=== PATIENT | female | born 1975 | race Caucasian/White ===

== ENCOUNTER → 2016-04-13 | Outpatient (CLI) | payer BC ==
--- NOTE | 2016-04-13 12:45 | US ---
EXAMINATION TYPE: US thyroid st tissue head/neck DATE OF EXAM: 04/13/2016 10:32 AM COMPARISON: NONE CLINICAL HISTORY: E06.9 Thyroid enlargement. GLAND SIZE: Right Lobe: 4.8 x 1.6 x 1.9cm Overall Parenchyma: homogenous Left Lobe: 4.2 x 1.5 x 1.8cm Overall Parenchyma: homogeneous Isthmus Thickness: 0.5cm NODULES RIGHT: # of nodules measured on right: 0 LEFT: # of nodules measured on left: 0 ISTHMUS: # of nodules measured in the isthmus: 0 TECHNOLOGIST IMPRESSION: Bilateral neck scanned, no abnormal lymphadenopathy noted. IMPRESSION: Thyroid size is described.
== END | disposition home or self-care (01) ==
LOC: RADUSWWP 10:14
PROVIDERS: ATTEND Family Medicine
DX: E06.9 Thyroiditis, unspecified (principal)
CPT/HCPCS: 76536

== ENCOUNTER → 2018-03-21 | Outpatient (CLI) | payer BC ==
--- NOTE | 2018-03-21 21:32 | MR ---
MR brain without contrast HISTORY: Atypical migraine headache Multiplanar multisequence imaging through the brain No comparisons There is no restricted diffusion. Corpus callosum, cervical medullary junction, cerebellopontine angl es are normal. There is a partially empty sella. There are normal vascular flow voids present. No hem orrhage or hydrocephalus. Focal punctate hyperintensity in the left frontal lobe on T2 and inversion recovery sequences as noted on axial image 19. The orbits are symmetric. Sinuses are showing mild muc operiosteal thickening in the ethmoid air cells. IMPRESSION: Nonspecific white matter demyelination of questionable clinical significance could be rel ated to migraine headache. Mild sinus disease.
== END | disposition home or self-care (01) ==
LOC: RADMRIMAIN 19:41
PROVIDERS: ATTEND Psychiatry & Neurology Neurology
DX: G37.8 Other specified demyelinating diseases of central nervous system (principal); J32.9 Chronic sinusitis, unspecified
CPT/HCPCS: 70551

== ENCOUNTER 2020-10-03 12:54 | Emergency (ER) | payer BC ==
[2020-10-03] MEDS ORDERED: ONDANSETRON 4 MG/2 ML VIAL IVP STA (14:33)
[2020-10-03] MEDS ORDERED: KETOROLAC 15 MG/ML 1 ML VIAL IVP STA (14:33)
[2020-10-03] MEDS ORDERED: SODIUM CHLORIDE 0.9% 1,000 ML IV STA (14:33)
--- NOTE | 2020-10-03 14:58 | ED ---
Abdominal Pain HPI - General Chief Complaint: Abdominal Pain Stated Complaint: possible kidney stone or UTI Time Seen by Provider: 10/03/20 14:32 Source: patient, RN notes reviewed Mode of arrival: ambulatory Limitations: no limitations - History of Present Illness Initial Comments: 45-year-old white female patient, alert and oriented 4, presents to the emergency room with complaints of left flank pain for the past 2 days. She states that the pain is 8 out of 10 and is now causing her nausea. She does have a history of kidney stones. She also states she is having dysuria. She denies fevers but does state that she feels hot at times and then chills. MD Complaint: flank pain (Left) -: days(s) (2) Radiation: L flank Severity scale (1-10): 8 Consistency: constant Improves With: nothing Worsens With: nothing Associated Symptoms: nausea - Related Data Home Medications Medication Instructions Recorded Confirmed Escitalopram [Lexapro] 20 mg PO DAILY@199910/03/20 10/03/20 Previous Rx's Medication Instructions Recorded Cephalexin [Keflex] 500 mg PO Q6HR 10 Days #40 cap 10/03/20 Tamsulosin [Flomax] 0.4 mg PO DAILY #7 cap 10/03/20 Allergies Allergy/AdvReac Type Severity Reaction Status Date / Time Iodinated Contrast Media Allergy Rash/Hives Verified 10/03/20 14:52 Review of Systems ROS Statement: Those systems with pertinent positive or pertinent negative responses have been documented in the HPI. ROS Other: All systems not noted in ROS Statement are negative. Past Medical History Additional Past Medical History / Comment(s): kidney stones, UTI History of Any Multi-Drug Resistant Organisms: None Reported Past Surgical History: No Surgical Hx Reported Past Psychological History: Anxiety Smoking Status: Never smoker Past Alcohol Use History: Rare Past Drug Use History: None Reported General Exam Limitations: no limitations General appearance: alert, in distress Head exam: Present: atraumatic (Related to pain), normocephalic, normal inspection Eye exam: Present: normal appearance, PERRL, EOMI. Absent: scleral icterus, conjunctival injection, periorbital swelling ENT exam: Present: normal exam, mucous membranes moist Neck exam: Present: normal inspection, full ROM. Absent: tenderness, meni ngismus, lymphadenopathy, thyromegaly Respiratory exam: Present: normal lung sounds bilaterally. Absent: respiratory distress, wheezes, rales, rhonchi, stridor Cardiovascular Exam: Present: regular rate, normal rhythm, normal heart sounds. Absent: systolic murmur, diastolic murmur, rubs, gallop, clicks GI/Abdominal exam: Present: soft, tenderness (Left lower quadrant), normal bowel sounds. Absent: distended, guarding, rebound, rigid Extremities exam: Present: normal inspection, full ROM, normal capillary refill. Absent: tenderness, pedal edema, joint swelling, calf tenderness Back exam: Present: full ROM, CVA tenderness (L) Neurological exam: Present: alert, oriented X3, CN II-XII intact Psychiatric exam: Present: normal affect, normal mood Skin exam: Present: warm, dry, intact, normal color. Absent: rash, cyanosis, diaphoretic, petechiae, pallor Course Vital Signs 10/03/20 10/03/20 10/03/20 13:43 17:02 17:58 Temperature 98.9 F 98.2 F Pulse Rate 84 100 92 Respiratory 20 18 16 Rate Blood Pressure 97/60 109/74 132/80 O2 Sat by Pulse 100 96 98 Oximetry Medical Decision Making - Medical Decision Making A 7 x 4 mm calculus at the left UPJ with mild to moderate obstructive uropathy. Perinephric edema has developed active to this obstruction. There is an additional 5 mm nonobstructive left renal calculus. WBC count is 8.9, her urine shows large leukocyte esterase, 123 wbc's with few bacteria and small blood. Patient does not want to be admitted to the hospital. She is agreeable to following up with urology. She'll be given prescription for antibiotics for urinary tract infection, Flomax and Tylenol threes as needed for pain. Patient did state that she does not want anything that would affect her ability to carry her weapon at work. Patient was directed to take the medication as needed at bedtime. She was given strict return parameters to for increasing pain, fever or inability to urinate. Case was discussed with Dr. Calderon was agreeable to this plan of care. - Lab Data Result diagrams: 10/03/20 15:04 10/03/20 15:04 Lab Results 10/03/20 10/03/20 10/03/20 Range/Units 15:04 15:04 15:04 WBC 8.9 (3.8-10.6) k/uL RBC 4.62 (3.80-5.40) m/uL Hgb 13.8 (11.4-16.0) gm/dL Hct 41.8 (34.0-46.0) % MCV 90.6 (80.0-100.0) fL MCH 29.9 (25.0-35.0) pg MCHC 33.0 (31.0-37.0) g/dL RDW 13.5 (11.5-15.5) % Plt Count 119 L (150-450) k/uL MPV 9.8 Neutrophils % 90 % Lymphocytes % 7 % Monocytes % 2 % Eosinophils % 1 % Basophils % 0 % Neutrophils # 8.0 H (1.3-7.7) k/uL Lymphocytes # 0.6 L (1.0-4.8) k/uL Monocytes # 0.2 (0-1.0) k/uL Eosinophils # 0.1 (0-0.7) k/uL Basophils # 0.0 (0-0.2) k/uL Sodium 136 L (137-145) mmol/L Potassium 4.5 (3.5-5.1) mmol/L Chloride 108 H (98-107) mmol/L Carbon Dioxide 21 L (22-30) mmol/L Anion Gap 7 mmol/L BUN 17 (7-17) mg/dL Creatinine 1.01 (0.52-1.04) mg/dL Est GFR (CKD-EPI)AfAm 79 (>60 ml/min/1.73 sqM) Est GFR (CKD-EPI)NonAf 69 (>60 ml/min/1.73 sqM) Glucose 98 (74-99) mg/dL Calcium 8.9 (8.4-10.2) mg/dL Total Bilirubin 1.3 (0.2-1.3) mg/dL AST 34 (14-36) U/L ALT 22 (4-34) U/L Alkaline Phosphatase 52 (38-126) U/L Total Protein 6.8 (6.3-8.2) g/dL Albumin 4.0 (3.5-5.0) g/dL Amylase 66 (30-110) U/L Lipase 146 (23-300) U/L Urine Color Yellow Urine Appearance Cloudy H (Clear) Urine pH 6.0 (5.0-8.0) Ur Specific [place] 1.024 (1.001-1.035) Urine Protein 1+ H (Negative) Urine Glucose (UA) Negative (Negative) Urine Ketones Negative (Negative) Urine Blood Small H (Negative) Urine Nitrite Positive H (Negative) Urine Bilirubin Negative (Negative) Urine Urobilinogen <2.0 (<2.0) mg/dL Ur Leukocyte Esterase Large H (Negative) Urine RBC 15 H (0-5) /hpf Urine WBC 123 H (0-5) /hpf Urine WBC Clumps Few H (None) /hpf Ur Squamous Epith Cells 1 (0-4) /hpf Urine Bacteria Few H (None) /hpf Hyaline Casts 1 (0-2) /lpf Urine Mucus Few H (None) /hpf Urine HCG, Qual (Not Detectd) 10/03/20 Range/Units 15:04 WBC (3.8-10.6) k/uL RBC (3.80-5.40) m/uL Hgb (11.4-16.0) gm/dL Hct (34.0-46.0) % MCV (80.0-100.0) fL MCH (25.0-35.0) pg MCHC (31.0-37.0) g/dL RDW (11.5-15.5) % Plt Count (150-450) k/uL MPV Neutrophils % % Lymphocytes % % Monocytes % % Eosinophils % % Basophils % % Neutrophils # (1.3-7.7) k/uL Lymphocytes # (1.0-4.8) k/uL Monocytes # (0-1.0) k/uL Eosinophils # (0-0.7) k/uL Basophils # (0-0.2) k/uL Sodium (137-145) mmol/L Potassium (3.5-5.1) mmol/L Chloride (98-107) mmol/L Carbon Dioxide (22-30) mmol/L Anion Gap mmol/L BUN (7-17) mg/dL Creatinine (0.52-1.04) mg/dL Est GFR (CKD-EPI)AfAm (>60 ml/min/1.73 sqM) Est GFR (CKD-EPI)NonAf (>60 ml/min/1.73 sqM) Glucose (74-99) mg/dL Calcium (8.4-10.2) mg/dL Total Bilirubin (0.2-1.3) mg/dL AST (14-36) U/L ALT (4-34) U/L Alkaline Phosphatase (38-126) U/L Total Protein (6.3-8.2) g/dL Albumin (3.5-5.0) g/dL Amylase (30-110) U/L Lipase (23-300) U/L Urine Color Urine Appearance (Clear) Urine pH (5.0-8.0) Ur Specific [place] (1.001-1.035) Urine Protein (Negative) Urine Glucose (UA) (Negative) Urine Ketones (Negative) Urine Blood (Negative) Urine Nitrite (Negative) Urine Bilirubin (Negative) Urine Urobilinogen (<2.0) mg/dL Ur Leukocyte Esterase (Negative) Urine RBC (0-5) /hpf Urine WBC (0-5) /hpf Urine WBC Clumps (None) /hpf Ur Squamous Epith Cells (0-4) /hpf Urine Bacteria (None) /hpf Hyaline Casts (0-2) /lpf Urine Mucus (None) /hpf Urine HCG, Qual Not Detected (Not Detectd) Disposition Clinical Impression: Kidney stones, Urinary tract infection Disposition: HOME SELF-CARE Condition: Fair Instructions (If sedation given, give patient instructions): Kidney Stones (ED), Urinary Tract Infection in Women (ED), Flank Pain (ED) Additional Instructions: Take medication as prescribed and follow-up with urology next week. Return to the emergency room with any new or worsening pain, inability to urinate or fevers. Prescriptions: Tamsulosin [Flomax] 0.4 mg PO DAILY #7 cap Cephalexin [Keflex] 500 mg PO Q6HR 10 Days #40 cap Is patient prescribed a controlled substance at d/c from ED?: No Referrals: Drew Lugo DO [Primary Care Provider] - 1-2 days Rico Leong MD [STAFF PHYSICIAN] - 1-2 days Time of Disposition: 17:22
[2020-10-03 15:28] LABS: Appearance,Urine Cloudy (Clear); Bacteria,Urine Few /hpf; Bilirubin,Urine Negative (Negative); Blood,Urine Small (Negative); Color,Urine Yellow; Glucose,Urine (UA) Negative (Negative); Hyaline Casts,Urine 1 /lpf (0-2); Ketones,Urine Negative (Negative); Leukocyte Esterase,Urine Large (Negative); Mucus,Urine Few /hpf; Nitrite,Urine Positive (Negative); Protein,Urine 1+ (Negative); RBC,Urine 15 /hpf (0-5); Specific Gravity,Urine 1.024 (1.001-1.035); Squamous Epithelial Cell,Urine 1 /hpf (0-4); Urobilinogen,Urine <2.0 mg/dL (<2.0); WBC,Urine 123 /hpf (0-5)
[2020-10-03 15:41] LABS: Calcium 8.9 mg/dL (8.4-10.2); Total Bilirubin 1.3 mg/dL (0.2-1.3); Total Protein 6.8 g/dL (6.3-8.2)
[2020-10-03 15:47] LABS: Potassium 4.5 mmol/L (3.5-5.1)
[2020-10-03 16:02] LABS: Basophils % (A) 0 %; Eosinophils # (A) 0.1 k/uL (0-0.7); Eosinophils % (A) 1 %; HCT 41.8 % (34.0-46.0); HGB 13.8 gm/dL (11.4-16.0); Lymphocytes # (A) 0.6 k/uL (1.0-4.8); Lymphocytes % (A) 7 %; MCH 29.9 pg (25.0-35.0); MCV 90.6 fL (80.0-100.0); Mean Platelet Volume 9.8; Monocytes # (A) 0.2 k/uL (0-1.0); Monocytes % (A) 2 %; Neutrophils % (A) 90 %; Platelet Count 119 k/uL (150-450); RBC 4.62 m/uL (3.80-5.40); RDW 13.5 % (11.5-15.5); WBC 8.9 k/uL (3.8-10.6)
--- NOTE | 2020-10-03 16:15 | CT ---
EXAMINATION TYPE: CT abdomen pelvis wo con DATE OF EXAM: 10/03/2020 COMPARISON: None HISTORY: 45-year-old female abdominal pain, Left flank pain. History of stones. CT DLP: 892.2 mGycm. Automated exposure control for dose reduction was used. TECHNIQUE: Contiguous axial scanning of the abdomen and pelvis without IV contrast. Coronal and sagit sylvain reconstructions performed. FINDINGS: Heart normal size without pericardial effusion. Lung bases clear without pleural effusion. Liver enlarged measuring 21.6 cm. Noncontrast appearance of the gallbladder, adrenal glands, right kidney, spleen with small hilar and anterior splenules, and pancreas within normal limits. There is [id number] left-sided hydronephrosis with a 7 x 4 mm calculus at the left UPJ. 5 mm no nobstructive calculus lower pole left kidney. Mild perinephric edema and fat stranding. No dilated small bowel, free fluid, or free air. No mesenteric or retroperitoneal lymphadenopathy. Normal appendix. Mild stool burden. No pericolonic inflammatory change. Mild circumferential bladder wall thickening. Patulous bilateral inguinal canals. Uterus is anteverte d. Small pelvic lymph nodes. No abnormal fluid collection in the pelvis or pelvic lymphadenopathy. Le ft ovary not well seen. Right ovary demonstrates a 2.6 cm dominant follicle or functional cyst. Bones: No osseous destructive process. IMPRESSION: 1. A 7 x 4 mm calculus at the left UPJ with [id number] obstructive uropathy. Perinephric edema has developed and is probably reactive to the obstruction. 2. An additional 5 mm nonobstructive left renal calculus. 3. Hepatomegaly at 21.6 cm. 4. Mild circumferential bladder wall thickening. Correlate to exclude cystitis. 5. Incidental 2.6 cm dominant follicle or functional cyst in the right ovary.
[2020-10-03] MEDS ORDERED: HYDROmorphone 1 MG/ML 1 ML SYRINGE IVP STA ×2 (16:40→16:52)
[2020-10-03] MEDS ORDERED: cefTRIAXone IN SWFI 1,000 MG/10 ML SYRINGE IVP STA (16:40)
[2020-10-03] MEDS ORDERED: TAMSULOSIN 0.4 MG CAP.ER.24H PO STA (16:41)
[2020-10-03] MEDS ORDERED: ACET/COD 300 MG/30 MG STARTER PACK 6 TAB BTL PO STA (17:21)
[2020-10-03 17:58] VITALS: BP 132/80; PULSE 92; RESP 16; TEMP 98.2
== END 2020-10-03 17:58 | disposition home or self-care (01) ==
LOC: EC 12:54
DX: N20.0 Calculus of kidney (principal); N39.0 Urinary tract infection, site not specified; F41.9 Anxiety disorder, unspecified; Z91.041 Radiographic dye allergy status; Z87.442 Personal history of urinary calculi
CPT/HCPCS: 99284; 96374; 96375 ×3; 96361; 36415; 80053; 82150; 83690; 85025; 81001; 81025; 87086; 74176; J2405; J0696; J1170; J1885; 87077; 87186

== ENCOUNTER 2020-10-04 10:09 | Inpatient (IN) | payer BC ==
[2020-10-04] MEDS ORDERED: KETOROLAC 15 MG/ML 1 ML VIAL IVP STA (10:35)
[2020-10-04] MEDS ORDERED: HYDROmorphone 0.5 MG/0.5 ML SYRINGE IVP STA (10:35)
[2020-10-04] MEDS ORDERED: SODIUM CHLORIDE 0.9% 1,000 ML IV STA (10:35)
--- NOTE | 2020-10-04 10:44 | ED ---
General Adult HPI - General Chief complaint: Abdominal Pain Stated complaint: kidney stones-revisit Source: patient, family, RN notes reviewed Mode of arrival: ambulatory Limitations: no limitations - History of Present Illness Initial comments: 45-year-old white female, alert and oriented 4, presents to the emergency room as a repeat visit from yesterday for continued left flank pain. Patient states that the pain is 9 out of 10 and sharp and stabbing radiates to her left lower abdomen. She states that she has been taking the antibiotics and Flomax. She states her left flank feels swollen. She has nausea but no vomiting. She denies any fevers. She states when she was in the hospital yesterday the Toradol did help and was only thing that has helped. Yesterday CT showed she had a 7 x 4 mm calculus to the left kidney with perinephric edema and fat stranding. Patient at that time chose to be discharged home and will follow-up with urology. Location: left (HEENT) Radiation: abdomen Severity scale (1-10): 9 Quality: sharp Consistency: constant Improves with: none Worsens with: movement Associated Symptoms: fever/chills, nausea/vomiting Treatments Prior to Arrival: other (Antibiotics, Flomax) - Related Data Home Medications Medication Instructions Recorded Confirmed Escitalopram [Lexapro] 20 mg PO HS@2000 10/03/20 10/04/20 Cephalexin [Keflex] 500 mg PO Q6H 10/04/20 10/04/20 Ibuprofen [Motrin Ib] 400 - 600 mg PO Q6H PRN 10/04/20 10/04/20 Previous Rx's Medication Instructions Recorded Tamsulosin [Flomax] 0.4 mg PO DAILY #7 cap 10/03/20 Allergies Allergy/AdvReac Type Severity Reaction Status Date / Time Iodinated Contrast Media Allergy Rash/Hives Verified 10/04/20 13:05 Review of Systems ROS Statement: Those systems with pertinent positive or pertinent negative responses have been documented in the HPI. ROS Other: All systems not noted in ROS Statement are negative. Past Medical History Additional Past Medical History / Comment(s): kidney stones, UTI History of Any Multi-Drug Resistant Organisms: None Reported Past Surgical History: No Surgical Hx Reported Past Psychological History: Anxiety, Depression Smoking Status: Never smoker Past Alcohol Use History: Rare Past Drug Use History: None Reported General Exam Limitations: no limitations General appearance: alert, in distress (Related to pain) Head exam: Present: atraumatic, normocephalic, normal inspection Eye exam: Present: normal appearance, PERRL, EOMI. Absent: scleral icterus ENT exam: Present: normal exam, normal oropharynx, mucous membranes moist Neck exam: Present: normal inspection, full ROM. Absent: tenderness, meningismus, lymphadenopathy, thyromegaly Respiratory exam: Present: normal lung sounds bilaterally. Absent: respiratory distress, wheezes, rales, rhonchi, stridor, chest wall tenderness, accessory muscle use Cardiovascular Exam: Present: regular rate, normal rhythm, normal heart sounds. Absent: systolic murmur, diastolic murmur, rubs, gallop, clicks, JVD GI/Abdominal exam: Present: soft, tenderness (Left lower quadrant). Absent: hernia Extremities exam: Present: normal inspection, full ROM, normal capillary refill. Absent: tenderness, pedal edema, joint swelling, calf tenderness Back exam: Present: normal inspection, full ROM, CVA tenderness (L). Absent: muscle spasm, paraspinal tenderness, vertebral tenderness, rash noted Neurological exam: Present: alert, oriented X3, CN II-XII intact Psychiatric exam: Present: normal affect, normal mood Skin exam: Present: warm, dry, intact, normal color. Absent: rash, cyanosis, diaphoretic, petechiae, pallor Course Vital Signs 10/04/20 10:28 Temperature 98.2 F Pulse Rate 94 Respiratory 18 Rate Blood Pressure 106/74 O2 Sat by Pulse 98 Oximetry Medical Decision Making - Medical Decision Making Renal ultrasound shows a mild left-sided hydronephrosis suggestive of calculus in the lower pole left kidney measuring 5 mm. Right kidney with no evidence of hydronephrosis. WBC count is elevated from 8 yesterday to 16 today. Patient lactic acid is 1.4, BUN and creatinine are 16 and 1.0 respectively. Patient is being treated for urinary tract infection with Keflex, started yesterday. She was given a gram of Rocephin IV yesterday. Spoke with Dr. Leong who will admit patient. - Lab Data Result diagrams: 10/04/20 10:49 10/04/20 10:49 Lab Results 10/04/20 10/04/20 10/04/20 Range/Units 10:49 10:49 10:49 WBC 16.6 H (3.8-10.6) k/uL RBC 4.32 (3.80-5.40) m/uL Hgb 12.8 (11.4-16.0) gm/dL Hct 38.9 (34.0-46.0) % MCV 90.1 (80.0-100.0) fL MCH 29.7 (25.0-35.0) pg MCHC 32.9 (31.0-37.0) g/dL RDW 13.5 (11.5-15.5) % Plt Count 203 (150-450) k/uL MPV 8.5 Neutrophils % 83 % Lymphocytes % 9 % Monocytes % 6 % Eosinophils % 1 % Basophils % 0 % Neutrophils # 13.7 H (1.3-7.7) k/uL Lymphocytes # 1.6 (1.0-4.8) k/uL Monocytes # 1.0 (0-1.0) k/uL Eosinophils # 0.1 (0-0.7) k/uL Basophils # 0.1 (0-0.2) k/uL Sodium 137 (137-145) mmol/L Potassium 4.0 (3.5-5.1) mmol/L Chloride 107 (98-107) mmol/L Carbon Dioxide 23 (22-30) mmol/L Anion Gap 7 mmol/L BUN 16 (7-17) mg/dL Creatinine 1.00 (0.52-1.04) mg/dL Est GFR (CKD-EPI)AfAm 80 (>60 ml/min/1.73 sqM) Est GFR (CKD-EPI)NonAf 70 (>60 ml/min/1.73 sqM) Glucose 123 H (74-99) mg/dL Plasma Lactic Acid [place] (0.7-2.0) mmol/L Calcium 8.8 (8.4-10.2) mg/dL Total Bilirubin 0.7 (0.2-1.3) mg/dL AST 42 H (14-36) U/L ALT 32 (4-34) U/L Alkaline Phosphatase 47 (38-126) U/L Total Protein 6.4 (6.3-8.2) g/dL Albumin 3.8 (3.5-5.0) g/dL Urine Color Yellow Urine Appearance Cloudy H (Clear) Urine pH 5.5 (5.0-8.0) Ur Specific [place] 1.026 (1.001-1.035) Urine Protein 1+ H (Negative) Urine Glucose (UA) 1+ H (Negative) Urine Ketones Negative (Negative) Urine Blood Small H (Negative) Urine Nitrite Negative (Negative) Urine Bilirubin Negative (Negative) Urine Urobilinogen 6.0 (<2.0) mg/dL Ur Leukocyte Esterase Large H (Negative) Urine RBC 7 H (0-5) /hpf Urine WBC 73 H (0-5) /hpf Ur Squamous Epith Cells 1 (0-4) /hpf Urine Bacteria Rare H (None) /hpf Urine Mucus Occasional H (None) /hpf 10/04/20 Range/Units 10:49 WBC (3.8-10.6) k/uL RBC (3.80-5.40) m/uL Hgb (11.4-16.0) gm/dL Hct (34.0-46.0) % MCV (80.0-100.0) fL MCH (25.0-35.0) pg MCHC (31.0-37.0) g/dL RDW (11.5-15.5) % Plt Count (150-450) k/uL MPV Neutrophils % % Lymphocytes % % Monocytes % % Eosinophils % % Basophils % % Neutrophils # (1.3-7.7) k/uL Lymphocytes # (1.0-4.8) k/uL Monocytes # (0-1.0) k/uL Eosinophils # (0-0.7) k/uL Basophils # (0-0.2) k/uL Sodium (137-145) mmol/L Potassium (3.5-5.1) mmol/L Chloride (98-107) mmol/L Carbon Dioxide (22-30) mmol/L Anion Gap mmol/L BUN (7-17) mg/dL Creatinine (0.52-1.04) mg/dL Est GFR (CKD-EPI)AfAm (>60 ml/min/1.73 sqM) Est GFR (CKD-EPI)NonAf (>60 ml/min/1.73 sqM) Glucose (74-99) mg/dL Plasma Lactic Acid [place] 1.4 (0.7-2.0) mmol/L Calcium (8.4-10.2) mg/dL Total Bilirubin (0.2-1.3) mg/dL AST (14-36) U/L ALT (4-34) U/L Alkaline Phosphatase (38-126) U/L Total Protein (6.3-8.2) g/dL Albumin (3.5-5.0) g/dL Urine Color Urine Appearance (Clear) Urine pH (5.0-8.0) Ur Specific [place] (1.001-1.035) Urine Protein (Negative) Urine Glucose (UA) (Negative) Urine Ketones (Negative) Urine Blood (Negative) Urine Nitrite (Negative) Urine Bilirubin (Negative) Urine Urobilinogen (<2.0) mg/dL Ur Leukocyte Esterase (Negative) Urine RBC (0-5) /hpf Urine WBC (0-5) /hpf Ur Squamous Epith Cells (0-4) /hpf Urine Bacteria (None) /hpf Urine Mucus (None) /hpf Disposition Clinical Impression: Kidney stone Disposition: ADMITTED IP TO THIS [facility] Condition: Good Decision Date: 10/04/20 Decision Time: 13:49
[2020-10-04] MEDS ORDERED: ONDANSETRON 4 MG/2 ML VIAL IVP STA (10:46)
[2020-10-04 11:22] LABS: Basophils # (A) 0.1 k/uL (0-0.2); Basophils % (A) 0 %; Eosinophils # (A) 0.1 k/uL (0-0.7); Eosinophils % (A) 1 %; HCT 38.9 % (34.0-46.0); HGB 12.8 gm/dL (11.4-16.0); Lymphocytes # (A) 1.6 k/uL (1.0-4.8); Lymphocytes % (A) 9 %; MCH 29.7 pg (25.0-35.0); MCHC 32.9 g/dL (31.0-37.0); MCV 90.1 fL (80.0-100.0); Mean Platelet Volume 8.5; Monocytes % (A) 6 %; Neutrophils # (A) 13.7 k/uL (1.3-7.7); Neutrophils % (A) 83 %; Platelet Count 203 k/uL (150-450); RBC 4.32 m/uL (3.80-5.40); RDW 13.5 % (11.5-15.5); WBC 16.6 k/uL (3.8-10.6)
[2020-10-04 11:42] LABS: Albumin 3.8 g/dL (3.5-5.0); Calcium 8.8 mg/dL (8.4-10.2); Total Bilirubin 0.7 mg/dL (0.2-1.3); Total Protein 6.4 g/dL (6.3-8.2)
[2020-10-04 12:01] LABS: Appearance,Urine Cloudy (Clear); Bacteria,Urine Rare /hpf; Bilirubin,Urine Negative (Negative); Blood,Urine Small (Negative); Color,Urine Yellow; Glucose,Urine (UA) 1+ (Negative); Ketones,Urine Negative (Negative); Leukocyte Esterase,Urine Large (Negative); Mucus,Urine Occasional /hpf; Nitrite,Urine Negative (Negative); PH, Urine 5.5 (5.0-8.0); Protein,Urine 1+ (Negative); RBC,Urine 7 /hpf (0-5); Specific Gravity,Urine 1.026 (1.001-1.035); Squamous Epithelial Cell,Urine 1 /hpf (0-4); WBC,Urine 73 /hpf (0-5)
--- NOTE | 2020-10-04 12:13 | US ---
EXAMINATION TYPE: US renals and bladder DATE OF EXAM: 10/04/2020 COMPARISON: NONE CLINICAL HISTORY: uti, back pain, hx of kidney stones. left flank pain, history of kidney stones EXAM MEASUREMENTS: Right Kidney: 11.0 x 4.3 x 4.6 cm Left Kidney: 11.6 x 6.2 x 4.5 cm Right Kidney: no evidence of hydronephrosis Left Kidney: mild hydronephrosis, possible stone lower pole = 0.5cm Bladder: not fully distended Bilateral Jets seen: no No masses are identified. The urinary bladder is anechoic. IMPRESSION: Mild left-sided hydronephrosis suggested with calculus lower pole left kidney measuring 5 mm.
[2020-10-04] MEDS ORDERED: LEVOFLOXACIN 750MG-D5W PMX 750 MG in DEXTROSE/WATER 1 150ML.BAG IVPB STA (12:38)
[2020-10-04] MEDS ORDERED: HYDROmorphone 1 MG/ML 1 ML SYRINGE IVP PRN (12:41)
[2020-10-04] MEDS ORDERED: NALOXONE 0.4 MG/ML 1 ML VIAL IV PRN (12:41)
[2020-10-04] MEDS: KETOROLAC 15 MG/ML 1 ML VIAL IVP PRN (20:00)
[2020-10-04] MEDS: ESCITALOPRAM 20 MG TAB PO SCH (20:01)
[2020-10-05] MEDS: SODIUM CHLORIDE 0.9% 1,000 ML IV SCH ×3 (01:48→11:22)
[2020-10-05] MEDS: KETOROLAC 15 MG/ML 1 ML VIAL IVP PRN ×2 (03:56→19:33)
[2020-10-05 05:26] LABS: Basophils % (A) 0 %; Eosinophils # (A) 0.2 k/uL (0-0.7); Eosinophils % (A) 2 %; HCT 35.8 % (34.0-46.0); HGB 11.8 gm/dL (11.4-16.0); Lymphocytes # (A) 1.4 k/uL (1.0-4.8); Lymphocytes % (A) 15 %; MCH 30.2 pg (25.0-35.0); MCV 91.6 fL (80.0-100.0); Mean Platelet Volume 8.4; Monocytes # (A) 0.5 k/uL (0-1.0); Monocytes % (A) 6 %; Neutrophils # (A) 7.1 k/uL (1.3-7.7); Neutrophils % (A) 75 %; Platelet Count 160 k/uL (150-450); RBC 3.91 m/uL (3.80-5.40); RDW 13.5 % (11.5-15.5); WBC 9.4 k/uL (3.8-10.6)
[2020-10-05] MEDS: TAMSULOSIN 0.4 MG CAP.ER.24H PO SCH (08:29)
--- NOTE | 2020-10-05 10:23 | P.GSHP ---
History of Present Illness H&P Date: 10/05/20 Chief Complaint: Left ureteral stone This is a 45-year-old female who presented to the hospital with a 7 mm left- sided proximal stone. Of note she's had 2 ED presentation with kidney stones. Has previous history of kidney stones which she passed spontaneously. Denies any gross hematuria or dysuria. Her UA on presentation was concerning for UTI. On her initial presentation on October 03 she was placed on by mouth antibiotic, but presented back yesterday with worsening pain, and her white count was elevated to 16,000. She was admitted to the hospital given the stone in the UTI. Today she indicated her pain has improved, but she did have a temperature 100.0 last night. - Constitutional Constitutional: Reports chills, Denies fever - Cardiovascular Cardiovascular: Denies chest pain, Denies shortness of breath - Respiratory Respiratory: Denies cough, Denies 7 - Gastrointestinal Gastrointestinal: Denies abdominal pain, Denies diarrhea, Denies nausea, Denies vomiting - Genitourinary (Female) Genitourinary: Reports flank pain, Denies dysuria, Denies hematuria - Musculoskeletal Musculoskeletal: Denies myalgias - Integumentary Integumentary: Denies pruritus, Denies rash - Neurological Neurological: Denies numbness, Denies weakness 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 History of Any Multi-Drug Resistant Organisms: None Reported Past Surgical History: No Surgical Hx Reported Past Anesthesia/Blood Transfusion Reactions: No Reported Reaction Past Psychological History: Anxiety, Depression Smoking Status: Never smoker Past Alcohol Use History: Rare Past Drug Use History: None Reported - Past Family History Father Additional Family Medical History / Comment(s): heart issues Mother Family Medical History: Diabetes Mellitus Additional Family Medical History / Comment(s): Type 2 Medications and Allergies Home Medications Medication Instructions Recorded Confirmed Type Escitalopram [Lexapro] 20 mg PO HS@199910/03/20 10/04/20 History Tamsulosin [Flomax] 0.4 mg PO DAILY #7 cap 10/03/20 10/04/20 Rx Cephalexin [Keflex] 500 mg PO Q6H 10/04/20 10/04/20 History Ibuprofen [Motrin Ib] 400 - 600 mg PO Q6H PRN 10/04/20 10/04/20 History Allergies Allergy/AdvReac Type Severity Reaction Status Date / Time Iodinated Contrast Media Allergy Severe Rash/Hives Verified 10/04/20 15:36 Surgical - Exam Vital Signs Temp Pulse Resp BP Pulse Ox 98.2 F 94 18 106/74 98 10/04/20 10:28 10/04/20 10:28 10/04/20 10:28 10/04/20 10:28 10/04/20 10:28 - General well developed, well nourished, no distress, no pain - Eyes PERRL, normal ocular movement - ENT normal nares, normal mucosa - Respiratory normal expansion, normal respiratory effort - Abdomen Abdomen: soft, non tender - Psychiatric oriented to time, oriented to person, oriented to place Results - Labs 10/05/20 05:02 10/04/20 10:49 Abnormal Lab Results - Last 24 Hours (Table) 10/04/20 10/04/20 10/04/20 Range/Units 10:49 10:49 10:49 WBC 16.6 H (3.8-10.6) k/uL Neutrophils # 13.7 H (1.3-7.7) k/uL Glucose 123 H (74-99) mg/dL AST 42 H (14-36) U/L Urine Appearance Cloudy H (Clear) Urine Protein 1+ H (Negative) Urine Glucose (UA) 1+ H (Negative) Urine Blood Small H (Negative) Ur Leukocyte Esterase Large H (Negative) Urine RBC 7 H (0-5) /hpf Urine WBC 73 H (0-5) /hpf Urine Bacteria Rare H (None) /hpf Urine Mucus Occasional H (None) /hpf Diabetes panel 10/04/20 Range/Units 10:49 Sodium 137 (137-145) mmol/L Potassium 4.0 (3.5-5.1) mmol/L Chloride 107 (98-107) mmol/L Carbon Dioxide 23 (22-30) mmol/L BUN 16 (7-17) mg/dL Creatinine 1.00 (0.52-1.04) mg/dL Glucose 123 H (74-99) mg/dL Calcium 8.8 (8.4-10.2) mg/dL AST 42 H (14-36) U/L ALT 32 (4-34) U/L Alkaline Phosphatase 47 (38-126) U/L Total Protein 6.4 (6.3-8.2) g/dL Albumin 3.8 (3.5-5.0) g/dL Calcium panel 10/04/20 Range/Units 10:49 Calcium 8.8 (8.4-10.2) mg/dL Albumin 3.8 (3.5-5.0) g/dL Pituitary panel 10/04/20 Range/Units 10:49 Sodium 137 (137-145) mmol/L Potassium 4.0 (3.5-5.1) mmol/L Chloride 107 (98-107) mmol/L Carbon Dioxide 23 (22-30) mmol/L BUN 16 (7-17) mg/dL Creatinine 1.00 (0.52-1.04) mg/dL Glucose 123 H (74-99) mg/dL Calcium 8.8 (8.4-10.2) mg/dL Adrenal panel 10/04/20 Range/Units 10:49 Sodium 137 (137-145) mmol/L Potassium 4.0 (3.5-5.1) mmol/L Chloride 107 (98-107) mmol/L Carbon Dioxide 23 (22-30) mmol/L BUN 16 (7-17) mg/dL Creatinine 1.00 (0.52-1.04) mg/dL Glucose 123 H (74-99) mg/dL Calcium 8.8 (8.4-10.2) mg/dL Total Bilirubin 0.7 (0.2-1.3) mg/dL AST 42 H (14-36) U/L ALT 32 (4-34) U/L Alkaline Phosphatase 47 (38-126) U/L Total Protein 6.4 (6.3-8.2) g/dL Albumin 3.8 (3.5-5.0) g/dL - Imaging CT scan - abdomen: image reviewed (7 left sided proximal stones, 5 mm left lower pole stone) Assessment and Plan Assessment: 45-year-old female with history of 7 mm stone, had a UTI on presentation, had low grade temperature of 100. Discussed with her given that this is her second presentation with the kidney stone and her UTI recommend proceeding with stent placement. Discussed with her given her UTI we cannot perform ureteroscopy at this time. Discussed with her the stent is a temporary measure, and she will need a ureteroscopy in the future to address her stone. -OR for left sided stent placement, will discharge home after surgery,
[2020-10-05] MEDS: MORPHINE SULFATE 4 MG/ML SYRINGE IVP PRN ×2 (11:22→18:12)
[2020-10-05] MEDS: ONDANSETRON 4 MG/2 ML VIAL IVP PRN ×2 (11:45→22:31)
[2020-10-05] MEDS ORDERED: MIDAZOLAM 2 MG/2 ML VIAL ONE (16:25)
[2020-10-05] MEDS ORDERED: fentaNYL (PF) 50 MCG/ML 2 ML AMP ONE (16:25)
[2020-10-05] MEDS ORDERED: PROPOFOL 10 MG/ML 20 ML VIAL IV ONE (16:25)
[2020-10-05] MEDS ORDERED: LIDOCAINE 1% INJ 10MG/ML (20 ML MDV) ONE (16:25)
[2020-10-05] MEDS ORDERED: LACTATED RINGERS 1,000 ML IV ONE (16:30)
--- NOTE | 2020-10-05 16:52 | P.OP ---
Date of Procedure: 10/05/20 Preoperative Diagnosis: left ureteral stone Postoperative Diagnosis: same Procedure(s) Performed: cystoscopy, left RP, stent placement Implants: 4.8Fr X 24 cm Anesthesia: ZIAA Surgeon: Rico Leong Estimated Blood Loss (ml): 1 Pathology: none sent Condition: stable Disposition: PACU Indications for Procedure: 45-year-old female with history of 7 mm stone on the left , she had a UTI on presentation, had low grade temperature of 100. Discussed with her given that this is her second presentation with the kidney stone and her UTI recommend proceeding with stent placement. Discussed with her given her UTI we cannot perform ureteroscopy at this time. Discussed with her the stent is a temporary measure, and she will need a ureteroscopy in the future to address her stone. She understood all risks and agreed to proceed Description of Procedure: Patient was brought to the operating room, sedation was induce. She was prepped and draped in sterile fashion placed in a dorsal lithotomy position. Cystoscopy fitted with a 21-Persian sheath was inserted per urethra, cystoscopy was performed which showed no abnormality within the bladder. Attention was then carried to the left ureteral orifice was intubated with an open-ended catheter. Retrograde pyelogram was performed through the catheter which showed a filling defect along the course of the proximal ureter at level of stone and mild hydronephrosis. Next a sensor wire was advanced through the catheter and the catheter was removed with the wire in place. Next ureteral stent was passed over the wire, the proximal curl was visualized on fluoroscopy and the distal curl was visualized using the cystoscope . The bladder was emptied at the end of the case. Patient tolerated the procedure well was taken PACU in stable condition
[2020-10-05] MEDS ORDERED: SODIUM CHLORIDE 0.9% 1,000 ML IV ONE (17:30)
[2020-10-05 18:04] VITALS: RESP 16
--- NOTE | 2020-10-05 19:32 | FL ---
EXAMINATION TYPE: FL urography retrograde DATE OF EXAM: 10/05/2020 COMPARISON: NONE HISTORY: Kidney stones TECHNIQUE: Fluoroscopy. FINDINGS: Fluoroscopic guidance was provided during procedure performed by Dr. Gómez. A total of 1 9 seconds of fluoroscopic time was utilized during the procedure and zero spot images was acquired. IMPRESSION: As Above.
[2020-10-05] MEDS: ESCITALOPRAM 20 MG TAB PO SCH (19:42)
[2020-10-05] MEDS ORDERED: LEVOFLOXACIN 750MG-D5W PMX 750 MG in DEXTROSE/WATER 1 150ML.BAG IVPB SCH (20:00)
[2020-10-06] MEDS: MORPHINE SULFATE 4 MG/ML SYRINGE IVP PRN (00:42)
[2020-10-06] MEDS: SODIUM CHLORIDE 0.9% 1,000 ML IV SCH (03:54)
[2020-10-06] MEDS: KETOROLAC 15 MG/ML 1 ML VIAL IVP PRN ×2 (03:57→09:38)
--- NOTE | 2020-10-06 08:29 | P.DS ---
Providers Date of admission: 10/04/20 13:04 Attending physician: Rico Leong MD Primary care physician: [facility] Course: The patient is 45. She has a history kidney stones. She presented with a severe ureteral colic on the left side due to 7 mm stone. The urine was infected, she had an elevated temperature of 100 and elevated white count of 16,000. admitted the patient and place a stent. She is much better this morning. She is afebrile. Her white count is down to 9000. She'll be discharged home later today on a regular diet. Her activities Limited. Her medications are Levaquin and Fifield. She'll follow-up in the office with in one week. Her condition is good. She understands she'll need cystoscopy stone and stent removal at a later date. She understands the symptoms of the stent. She's been instructed to contact us with any problems. Patient Condition at Discharge: Good Plan - Discharge Summary Discharge Rx Participant: No New Discharge Prescriptions: New Levofloxacin [Levaquin] 500 mg PO DAILY 5 Days #5 tab Levofloxacin [Levaquin] 500 mg PO DAILY 1 Days #10 tab HYDROcodone/APAP 5-325MG [Fifield 5-325] 1 tab PO Q4HR PRN #10 tab PRN Reason: Pain Control No Action Escitalopram [Lexapro] 20 mg PO HS@1999 Tamsulosin [Flomax] 0.4 mg PO DAILY #7 cap Cephalexin [Keflex] 500 mg PO Q6H Ibuprofen [Motrin Ib] 400 - 600 mg PO Q6H PRN PRN Reason: Pain Discharge Medication List Escitalopram [Lexapro] 20 mg PO HS@199910/03/20 [History] Tamsulosin [Flomax] 0.4 mg PO DAILY #7 cap 10/03/20 [Rx] Cephalexin [Keflex] 500 mg PO Q6H 10/04/20 [History] Ibuprofen [Motrin Ib] 400 - 600 mg PO Q6H PRN 10/04/20 [History] Levofloxacin [Levaquin] 500 mg PO DAILY 5 Days #5 tab 10/05/20 [Rx] HYDROcodone/APAP 5-325MG [Fifield 5-325] 1 tab PO Q4HR PRN #10 tab 10/06/20 [Rx] Levofloxacin [Levaquin] 500 mg PO DAILY 1 Days #10 tab 10/06/20 [Rx] Follow up Appointment(s)/Referral(s): Drew Lugo DO [Primary Care Provider] - 1-2 days Rico Leong MD [STAFF PHYSICIAN] - 1 Week Activity/Diet/Wound Care/Special Instructions: It's normal to have blood in the urine Increase fluid intake you will be contacted by our office to get your surgery scheduled, if nobody cause you within a week, give our office a call ([phone]) Discharge Disposition: HOME SELF-CARE
[2020-10-06 08:35] VITALS: BP 110/72; PULSE 79; TEMP 98.2
[2020-10-06] MEDS: TAMSULOSIN 0.4 MG CAP.ER.24H PO SCH (09:43)
== END 2020-10-06 10:15 | disposition home or self-care (01) | DRG 660 ==
LOC: EC 10:09 → 6NMEDSUR 13:04 → 6PED 14:21 → OBSVTOIN 10-06 08:19
PROVIDERS: ADMIT Urology; ATTEND Urology
PROC: 0T9B80Z Drainage of Bladder with Drainage Device, Via Natural or Artificial Opening Endoscopic (ICD-10-PCS; 2020-10-05)
PROC: 0T778DZ Dilation of Left Ureter with Intraluminal Device, Via Natural or Artificial Opening Endoscopic (ICD-10-PCS; principal; 2020-10-05 16:30)
PROC: BT1F1ZZ Fluoroscopy of Left Kidney, Ureter and Bladder using Low Osmolar Contrast (ICD-10-PCS; 2020-10-05 16:30)
DX: N13.6 Pyonephrosis (principal); N20.2 Calculus of kidney with calculus of ureter; F32.9 Major depressive disorder, single episode, unspecified; F41.9 Anxiety disorder, unspecified; Z79.899 Other long term (current) drug therapy; Z87.442 Personal history of urinary calculi; Z91.041 Radiographic dye allergy status
CPT/HCPCS: 36415; 74420; 76770; 80053; 81001; 81025; 83605; 85025; 87040; 96361; 96374; 96375; 99285

== ENCOUNTER 2020-10-07 11:15 | Inpatient (IN) | payer BC ==
--- NOTE | 2020-10-07 11:53 | ED ---
General Adult HPI - General Source: patient, RN notes reviewed, old records reviewed Mode of arrival: ambulatory Limitations: no limitations <Ryan Sarabia - Last Filed: 10/07/20 15:08> <Ryan Coronado - Last Filed: 10/07/20 18:22> - General Chief complaint: Chest Pain Stated complaint: Chest Pain Time Seen by Provider: 10/07/20 11:15 - History of Present Illness Initial comments: This is a 45-year-old female presents emergency Department complaining of chest pressure and difficulty breathing. Patient states last few days she's been in an out of the ER in the hospital for infected kidney stone she had a stent placed 2 days ago and was released from hospital yesterday. Patient states last night she again had a fever 101 throughout the evening she was having chest pressure and felt it was very difficult to take a deep breath. Patient states she was also diaphoretic last evening. Patient denies any cough. Patient denies lightheadedness or dizziness. Patient states her dysuria is still remains but it's much improved compared to when she was in the hospital. Patient denies any significant abdominal pain. Patient denies any back pain. (Ryan Sarabia) Care received from Dr. Sarabia. The patient does relate that she has been on Levaquin intravenously while in the hospital and now orally times one dose. She is still having above-noted symptoms. She does relate that her chest pain is pleuritic in nature. (Ryan Coronado) - Related Data Home Medications Medication Instructions Recorded Confirmed Escitalopram [Lexapro] 20 mg PO HS@2000 10/03/20 10/07/20 Ibuprofen [Motrin Ib] 400 - 600 mg PO Q6H PRN 10/04/20 10/07/20 HYDROcodone/APAP 5-325MG [[place] 1 - 2 tab PO Q4H PRN 10/07/20 10/07/20 5-325] Previous Rx's Medication Instructions Recorded Tamsulosin [Flomax] 0.4 mg PO DAILY #7 cap 10/03/20 Levofloxacin [Levaquin] 500 mg PO DAILY 1 Days #10 tab 10/06/20 Allergies Allergy/AdvReac Type Severity Reaction Status Date / Time Iodinated Contrast Media Allergy Severe Rash/Hives Verified 10/07/20 13:00 Review of Systems ROS Other: All systems not noted in ROS Statement are negative. <Ryan Sarabia - Last Filed: 10/07/20 15:08> ROS Other: All systems not noted in ROS Statement are negative. <Ryan Coronado - Last Filed: 10/07/20 18:22> ROS Statement: Those systems with pertinent positive or pertinent negative responses have been documented in the HPI. 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 History of Any Multi-Drug Resistant Organisms: None Reported Past Surgical History: No Surgical Hx Reported Additional Past Surgical History / Comment(s): ureter stent Past Anesthesia/Blood Transfusion Reactions: No Reported Reaction Past Psychological History: Anxiety, Depression Smoking Status: Never smoker Past Alcohol Use History: Rare Past Drug Use History: None Reported - Past Family History Father Additional Family Medical History / Comment(s): heart issues Mother Family Medical History: Diabetes Mellitus Additional Family Medical History / Comment(s): Type 2 <Ryan Sarabia - Last Filed: 10/07/20 15:08> General Exam Limitations: no limitations <Ryan Sarabia - Last Filed: 10/07/20 15:08> - General Exam Comments Initial Comments: GENERAL: Patient is well-developed and well-nourished. Patient is nontoxic and well- hydrated and is in mild distress. ENT: Neck is soft and supple. No significant lymphadenopathy is noted. Oropharynx is clear. Moist mucous membranes. Neck has full range of motion without eliciting any pain. EYES: The sclera were anicteric and conjunctiva were pink and moist. Extraocular movements were intact and pupils were equal round and reactive to light. Eyelids were unremarkable. PULMONARY: Unlabored respirations. Good breath sounds bilaterally. No audible rales rhonchi or wheezing was noted. CARDIOVASCULAR: There is a regular rate and rhythm without any murmurs gallops or rubs. ABDOMEN: Soft and nontender with normal bowel sounds. SKIN: Skin is clear with no lesions or rashes and otherwise unremarkable. NEUROLOGIC: Patient is alert and oriented x3. Cranial nerves II through XII are grossly intact. Motor and sensory are also intact. Normal speech, volume and content. Symmetrical smile. MUSCULOSKELETAL: Normal extremities with adequate strength and full range of motion. No lower extremity swelling or edema. No calf tenderness. LYMPHATICS: No significant lymphadenopathy is noted PSYCHIATRIC: Patient is mildly anxious (Ryan Sarabia) Course Vital Signs 10/07/20 10/07/20 10/07/20 11:21 16:05 16:33 Temperature 98.8 F 98.8 F Pulse Rate 68 61 65 Respiratory 18 18 Rate Blood Pressure 138/86 139/86 O2 Sat by Pulse 97 94 L 95 Oximetry Medical Decision Making - Lab Data Result diagrams: 10/07/20 12:01 10/07/20 12:01 <Ryan Sarabia - Last Filed: 10/07/20 15:08> - Lab Data Result diagrams: 10/07/20 12:01 10/07/20 12:01 <Ryan Coronado - Last Filed: 10/07/20 18:22> - Medical Decision Making EKG shows normal sinus rhythm at 62 bpm TX interval is 128 QRSs 80 QT interval is 420 QTC is 434. Patient's EKG shows no ST segment elevation or depression. I ordered a CAT scan to rule out PE with IV contrast. Patient states she is AL LERGIC to IV contrast she doesn't know if she had an anaphylactic reaction or not she was nervous about getting another CAT scan. I tried to obtain the chart from [facility] that would indicate whether she had an anaphylactic reaction they did not find one. I explained to the patient I was going to order a VQ scan at this point time she and her did not want one because it was not a definitive test and they wanted to have the IV contrast even though she may have had a anaphylactic for reaction in the past and they were willing to take the pre-meds and accept the risks. Patient and understood the risks. Dr. Coronado will be taking over the care of this patient at 3 PM (Ryan Sarabia) The patient was seen and examined. All diagnostics are reviewed. The d-dimer is elevated and therefore she did undergo the CT and a gram of the chest with pretreatment. She did not exhibit any signs of ALLERGIC reaction. And tolerated this well. The CTA did show evidence of bilateral pneumonia/infiltrate of changes but there is no evidence of pulmonary embolism. She appears to essentially have developed a pneumonia despite being on Levaquin. The exact cause of this pneumonia is not definitively determine but it is felt as though it certainly could essentially be bacterial due to a negative covert and negative influenza. Admission is therefore recommended as it appears that she has failed outpatient treatment. Patient is agreeable. Case will be discussed with internal medicine in the near future. Her urinalysis also is reviewed and still does show evidence of infection but this appears to be somewhat improved as compared to previous. (Ryan Coronado) - Lab Data Lab Results 10/07/20 10/07/20 10/07/20 Range/Units 12:01 12:01 12:01 WBC 7.7 (3.8-10.6) k/uL RBC 3.93 (3.80-5.40) m/uL Hgb 11.6 (11.4-16.0) gm/dL Hct 35.2 (34.0-46.0) % MCV 89.5 (80.0-100.0) fL MCH 29.6 (25.0-35.0) pg MCHC 33.0 (31.0-37.0) g/dL RDW 13.4 (11.5-15.5) % Plt Count 236 (150-450) k/uL MPV 8.1 Neutrophils % 68 % Lymphocytes % 18 % Monocytes % 9 % Eosinophils % 2 % Basophils % 1 % Neutrophils # 5.2 (1.3-7.7) k/uL Lymphocytes # 1.4 (1.0-4.8) k/uL Monocytes # 0.7 (0-1.0) k/uL Eosinophils # 0.1 (0-0.7) k/uL Basophils # 0.0 (0-0.2) k/uL D-Dimer (<0.60) mg/L FEU Sodium 138 (137-145) mmol/L Potassium 4.5 (3.5-5.1) mmol/L Chloride 109 H (98-107) mmol/L Carbon Dioxide 21 L (22-30) mmol/L Anion Gap 8 mmol/L BUN 11 (7-17) mg/dL Creatinine 0.83 (0.52-1.04) mg/dL Est GFR (CKD-EPI)AfAm >90 (>60 ml/min/1.73 sqM) Est GFR (CKD-EPI)NonAf 87 (>60 ml/min/1.73 sqM) Glucose 97 (74-99) mg/dL Plasma Lactic Acid Preston (0.7-2.0) mmol/L Calcium 8.9 (8.4-10.2) mg/dL Total Bilirubin 0.8 (0.2-1.3) mg/dL AST 78 H (14-36) U/L ALT 86 H (4-34) U/L Alkaline Phosphatase 77 (38-126) U/L Troponin I (0.000-0.034) ng/mL Total Protein 6.3 (6.3-8.2) g/dL Albumin 3.5 (3.5-5.0) g/dL Urine Color Yellow Urine Appearance Cloudy H (Clear) Urine pH 7.0 (5.0-8.0) Ur Specific [place] 1.012 (1.001-1.035) Urine Protein 1+ H (Negative) Urine Glucose (UA) Negative (Negative) Urine Ketones Negative (Negative) Urine Blood Moderate H (Negative) Urine Nitrite Negative (Negative) Urine Bilirubin Negative (Negative) Urine Urobilinogen 4.0 (<2.0) mg/dL Ur Leukocyte Esterase Large H (Negative) Urine RBC 109 H (0-5) /hpf Urine WBC 26 H (0-5) /hpf Ur Squamous Epith Cells 2 (0-4) /hpf Urine Bacteria Few H (None) /hpf Urine Mucus Rare H (None) /hpf Coronavirus (PCR) (Not Detectd) Influenza Type A RNA (Not Detectd) Influenza Type B (PCR) (Not Detectd) 10/07/20 10/07/20 10/07/20 Range/Units 12:01 12:01 12:01 WBC (3.8-10.6) k/uL RBC (3.80-5.40) m/uL Hgb (11.4-16.0) gm/dL Hct (34.0-46.0) % MCV (80.0-100.0) fL MCH (25.0-35.0) pg MCHC (31.0-37.0) g/dL RDW (11.5-15.5) % Plt Count (150-450) k/uL MPV Neutrophils % % Lymphocytes % % Monocytes % % Eosinophils % % Basophils % % Neutrophils # (1.3-7.7) k/uL Lymphocytes # (1.0-4.8) k/uL Monocytes # (0-1.0) k/uL Eosinophils # (0-0.7) k/uL Basophils # (0-0.2) k/uL D-Dimer 4.67 H (<0.60) mg/L FEU Sodium (137-145) mmol/L Potassium (3.5-5.1) mmol/L Chloride (98-107) mmol/L Carbon Dioxide (22-30) mmol/L Anion Gap mmol/L BUN (7-17) mg/dL Creatinine (0.52-1.04) mg/dL Est GFR (CKD-EPI)AfAm (>60 ml/min/1.73 sqM) Est GFR (CKD-EPI)NonAf (>60 ml/min/1.73 sqM) Glucose (74-99) mg/dL Plasma Lactic Acid Preston 1.0 (0.7-2.0) mmol/L Calcium (8.4-10.2) mg/dL Total Bilirubin (0.2-1.3) mg/dL AST (14-36) U/L ALT (4-34) U/L Alkaline Phosphatase (38-126) U/L Troponin I 0.025 (0.000-0.034) ng/mL Total Protein (6.3-8.2) g/dL Albumin (3.5-5.0) g/dL Urine Color Urine Appearance (Clear) Urine pH (5.0-8.0) Ur Specific [place] (1.001-1.035) Urine Protein (Negative) Urine Glucose (UA) (Negative) Urine Ketones (Negative) Urine Blood (Negative) Urine Nitrite (Negative) Urine Bilirubin (Negative) Urine Urobilinogen (<2.0) mg/dL Ur Leukocyte Esterase (Negative) Urine RBC (0-5) /hpf Urine WBC (0-5) /hpf Ur Squamous Epith Cells (0-4) /hpf Urine Bacteria (None) /hpf Urine Mucus (None) /hpf Coronavirus (PCR) (Not Detectd) Influenza Type A RNA (Not Detectd) Influenza Type B (PCR) (Not Detectd) 10/07/20 10/07/20 Range/Units 16:39 16:41 WBC (3.8-10.6) k/uL RBC (3.80-5.40) m/uL Hgb (11.4-16.0) gm/dL Hct (34.0-46.0) % MCV (80.0-100.0) fL MCH (25.0-35.0) pg MCHC (31.0-37.0) g/dL RDW (11.5-15.5) % Plt Count (150-450) k/uL MPV Neutrophils % % Lymphocytes % % Monocytes % % Eosinophils % % Basophils % % Neutrophils # (1.3-7.7) k/uL Lymphocytes # (1.0-4.8) k/uL Monocytes # (0-1.0) k/uL Eosinophils # (0-0.7) k/uL Basophils # (0-0.2) k/uL D-Dimer (<0.60) mg/L FEU Sodium (137-145) mmol/L Potassium (3.5-5.1) mmol/L Chloride (98-107) mmol/L Carbon Dioxide (22-30) mmol/L Anion Gap mmol/L BUN (7-17) mg/dL Creatinine (0.52-1.04) mg/dL Est GFR (CKD-EPI)AfAm (>60 ml/min/1.73 sqM) Est GFR (CKD-EPI)NonAf (>60 ml/min/1.73 sqM) Glucose (74-99) mg/dL Plasma Lactic Acid Preston (0.7-2.0) mmol/L Calcium (8.4-10.2) mg/dL Total Bilirubin (0.2-1.3) mg/dL AST (14-36) U/L ALT (4-34) U/L Alkaline Phosphatase (38-126) U/L Troponin I (0.000-0.034) ng/mL Total Protein (6.3-8.2) g/dL Albumin (3.5-5.0) g/dL Urine Color Urine Appearance (Clear) Urine pH (5.0-8.0) Ur Specific [place] (1.001-1.035) Urine Protein (Negative) Urine Glucose (UA) (Negative) Urine Ketones (Negative) Urine Blood (Negative) Urine Nitrite (Negative) Urine Bilirubin (Negative) Urine Urobilinogen (<2.0) mg/dL Ur Leukocyte Esterase (Negative) Urine RBC (0-5) /hpf Urine WBC (0-5) /hpf Ur Squamous Epith Cells (0-4) /hpf Urine Bacteria (None) /hpf Urine Mucus (None) /hpf Coronavirus (PCR) Not Detected (Not Detectd) Influenza Type A RNA Not Detected (Not Detectd) Influenza Type B (PCR) Not Detected (Not Detectd) Disposition <Ryan Sarabia - Last Filed: 10/07/20 15:08> Is patient prescribed a controlled substance at d/c from ED?: No Time of Disposition: 18:22 Decision Date: 10/07/20 Decision Time: 18:22 <Ryan Coronado - Last Filed: 10/07/20 18:22> Clinical Impression: Bilateral pneumonia, Failure of outpatient treatment, Urinary tract infection, Nephrolithiasis, Chest pain Disposition: ADMITTED IP TO THIS HOSP Condition: Fair Referrals: Drew Lugo DO [Primary Care Provider] - 1-2 days
[2020-10-07] MEDS ORDERED: cefTRIAXone IN SWFI 1,000 MG/10 ML SYRINGE IVP STA (11:55)
[2020-10-07 12:17] LABS: Basophils % (A) 1 %; Eosinophils # (A) 0.1 k/uL (0-0.7); Eosinophils % (A) 2 %; HCT 35.2 % (34.0-46.0); HGB 11.6 gm/dL (11.4-16.0); Lymphocytes # (A) 1.4 k/uL (1.0-4.8); Lymphocytes % (A) 18 %; MCH 29.6 pg (25.0-35.0); MCV 89.5 fL (80.0-100.0); Mean Platelet Volume 8.1; Monocytes # (A) 0.7 k/uL (0-1.0); Monocytes % (A) 9 %; Neutrophils # (A) 5.2 k/uL (1.3-7.7); Neutrophils % (A) 68 %; Platelet Count 236 k/uL (150-450); RBC 3.93 m/uL (3.80-5.40); RDW 13.4 % (11.5-15.5); WBC 7.7 k/uL (3.8-10.6)
--- NOTE | 2020-10-07 12:18 | XR ---
EXAMINATION TYPE: XR chest 2V DATE OF EXAM: 10/07/2020 COMPARISON: 08/06/2012 TECHNIQUE: PA and lateral views submitted. HISTORY: Fever FINDINGS: The lungs are clear and there is no pneumothorax, pleural effusion, or focal pneumonia. Heart size normal. Subsegmental changes lung bases. Coarsened interstitium. Mild degenerative change of the spin e. IMPRESSION: 1. Correlate for interstitial pneumonia or pneumonitis within the right basilar atelectasis versus ea rly infiltrate.
[2020-10-07] MEDS: SODIUM CHLORIDE 0.9% 500 ML 500 ML IV SCH ×2 (12:19→22:24)
[2020-10-07 12:35] LABS: ALT 86 U/L (4-34); AST 78 U/L (14-36); African American GFR (CKD) >90 (>60 ml/min/1.73 sqM); Albumin 3.5 g/dL (3.5-5.0); Alkaline Phosphatase 77 U/L (38-126); Anion Gap 8 mmol/L; Blood Urea Nitrogen 11 mg/dL (7-17); Calcium 8.9 mg/dL (8.4-10.2); Carbon Dioxide 21 mmol/L (22-30); Chloride 109 mmol/L (98-107); Glucose 97 mg/dL (74-99); Non-African American GFR(CKD) 87 (>60 ml/min/1.73 sqM); Sodium 138 mmol/L (137-145); Total Bilirubin 0.8 mg/dL (0.2-1.3); Total Protein 6.3 g/dL (6.3-8.2)
[2020-10-07 12:36] LABS: Potassium 4.5 mmol/L (3.5-5.1)
[2020-10-07 12:43] LABS: Appearance,Urine Cloudy (Clear); Bacteria,Urine Few /hpf; Bilirubin,Urine Negative (Negative); Blood,Urine Moderate (Negative); Color,Urine Yellow; Glucose,Urine (UA) Negative (Negative); Ketones,Urine Negative (Negative); Leukocyte Esterase,Urine Large (Negative); Mucus,Urine Rare /hpf; Nitrite,Urine Negative (Negative); Protein,Urine 1+ (Negative); RBC,Urine 109 /hpf (0-5); Specific Gravity,Urine 1.012 (1.001-1.035); Squamous Epithelial Cell,Urine 2 /hpf (0-4); WBC,Urine 26 /hpf (0-5)
[2020-10-07] MEDS ORDERED: FAMOTIDINE 20 MG/2 ML VIAL IV STA (14:04)
[2020-10-07] MEDS ORDERED: methylPREDNISolone SOD SUCCI 125 MG/2 ML VIAL IV STA (14:04)
[2020-10-07] MEDS ORDERED: diphenhydrAMINE 50 MG/ML 1 ML VIAL IVP STA (14:04)
--- NOTE | 2020-10-07 16:16 | CT ---
EXAMINATION TYPE: CT chest angio for PE DATE OF EXAM: 10/07/2020 COMPARISON: None HISTORY: Chest pain, shortness of breath, elevated d-dimer, recent ureteral stent. CT DLP: 370.8 mGycm CONTRAST: CT chest with contrast and 3D reconstruction with MIP imaging is performed with IV Contrast, patient injected with 100 mL of Isovue 370. Contrast-enhanced CT of the chest was performed through the course of the pulmonary arteries with elidia g and mediastinal window settings submitted. 3D reconstruction with MIP imaging was also performed. PULMONARY ARTERIES: The pulmonary arteries and their major tributaries are patent. I do not see calvin dence for sizable filling defect to suggest pulmonary embolic process. LUNGS: Scattered airspace and groundglass infiltrates throughout both lung velasco as well as bilatera l pleural effusions. Correlate for underlying pneumonia. MEDIASTINUM: Thoracic aorta is of normal caliber,however, evaluation is limited given timing of the contrast bolus. If there is concern for thoracic aortic pathology consider HARPER. Correlate clinicall y . The heart is not enlarged. No evidence for mediastinal mass. No mediastinal lymph nodes greater than 1cm. HILAR STRUCTURES: No evidence for mass. No hilar lymph nodes greater than 1 cm. UPPER ABDOMEN: No significant abnormality is seen. IMPRESSION: 1. No evidence for Pulmonary embolism at this time. 2. Correlate for underlying pneumonia.
[2020-10-07] MEDS ORDERED: KETOROLAC 15 MG/ML 1 ML VIAL IVP STA (18:23)
[2020-10-07] MEDS ORDERED: PIPERACILLIN-TAZOBACTAM 3.375 GM in SODIUM CHLORIDE 0.9% 100 ML IVPB STA (19:10)
[2020-10-07] MEDS ORDERED: VANCOMYCIN IV PER PHARMACY 1 EACH MISC MISCELLANE PRN (19:10)
[2020-10-07] MEDS ORDERED: VANCOMYCIN 1,000 MG in SODIUM CHLORIDE 0.9% 250 ML IVPB STA (19:10)
[2020-10-07] MEDS ORDERED: PNEUMONIA PROTOCOL UTILIZED 1 EACH MISC PO PRN (19:12)
[2020-10-07] MEDS ORDERED: VANCOMYCIN 1,750 MG in SODIUM CHLORIDE 0.9% 500 ML 500 ML IVPB STA (19:13)
[2020-10-07] MEDS ORDERED: IBUPROFEN 400 MG TAB PO PRN (19:15)
[2020-10-07] MEDS ORDERED: HYDROcodone/APAP 5-325MG 1 EACH TAB PO PRN (19:15)
[2020-10-07] MEDS: ESCITALOPRAM 20 MG TAB PO SCH (21:54)
[2020-10-07] MEDS: IPRATROPIUM-ALBUTEROL 3 ML NEB INHALATION SCH (22:40)
[2020-10-08] MEDS: PIPERACILLIN-TAZOBACTAM 3.375 GM in SODIUM CHLORIDE 0.9% 100 ML IVPB SCH ×3 (04:48→20:14)
--- NOTE | 2020-10-08 08:15 | XR ---
KUB HISTORY: Stent placement Frontal KUB submitted on [address] CT scan 10/03/2020 Facet double-J stent is in place. There is contrast material within the urinary bladder. Calcificatio ns noted over the left kidney and region of the proximal left ureter. No evident bowel obstruction or pneumoperitoneum. There are basilar effusions and associated atelectasis. IMPRESSION: Left-sided double-J stent placement, left nephrolithiasis and possible left ureterolithia sis
[2020-10-08] MEDS ORDERED: LEVOFLOXACIN 500 MG TAB PO SCH (09:00)
[2020-10-08] MEDS: IPRATROPIUM-ALBUTEROL 3 ML NEB INHALATION SCH ×4 (09:16→19:09)
--- NOTE | 2020-10-08 09:19 | P.GSCN ---
History of Present Illness Consult date: 10/08/20 History of present illness: 45-year-old female recently in the hospital with urinary tract infection and sepsis due to an obstructing stone on the left side and secondary pyelonephrosis. Dr. Leong emergently placed a left double-J catheter. She was placed on antibiotics and discharged home. SHe was doing well until yesterday when she became markedly short of breath. She presented to the emergency room. Evaluation led to possible atelectasis or pneumonia. There is no pulmonary embolus. Her white count was normal. He is not febrile. kub shows a stent in good place. She had an updraft treatment and feels much better. Review of Systems All systems: negative - Constitutional Denies fever, Denies weight loss - EENT Eyes: denies blurred vision Ears, nose, mouth and throat: Denies dysphagia - Cardiovascular Denies chest pain, Denies shortness of breath - Respiratory Denies cough, Denies 7 - Gastrointestinal Reports as per HPI - Genitourinary Genitourinary: Denies dysuria, Denies hematuria - Integumentary Denies rash, Denies unusual bruising - Neurological Denies headaches, Denies syncope - Hematologic/Lymphatic Denies easy bleeding, Denies easy bruising 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 History of Any Multi-Drug Resistant Organisms: None Reported Past Surgical History: No Surgical Hx Reported Additional Past Surgical History / Comment(s): ureter stent Past Anesthesia/Blood Transfusion Reactions: No Reported Reaction Past Psychological History: Anxiety, Depression Smoking Status: Never smoker Past Alcohol Use History: Rare Past Drug Use History: None Reported - Past Family History Father Additional Family Medical History / Comment(s): heart issues Mother Family Medical History: Diabetes Mellitus Additional Family Medical History / Comment(s): Type 2 Medications and Allergies Home Medications Medication Instructions Recorded Confirmed Type Escitalopram [Lexapro] 20 mg PO HS@199910/03/20 10/07/20 History Tamsulosin [Flomax] 0.4 mg PO DAILY #7 cap 10/03/20 10/07/20 Rx Ibuprofen [Motrin Ib] 400 - 600 mg PO Q6H PRN 10/04/20 10/07/20 History Levofloxacin [Levaquin] 500 mg PO DAILY 1 Days #10 tab 10/06/20 10/07/20 Rx HYDROcodone/APAP 5-325MG [[place] 1 - 2 tab PO Q4H PRN 10/07/20 10/07/20 History 5-325] Allergies Allergy/AdvReac Type Severity Reaction Status Date / Time Iodinated Contrast Media Allergy Severe Rash/Hives Verified 10/07/20 13:00 Surgical - Exam Vital Signs Temp Pulse Resp BP Pulse Ox 98.8 F 68 18 138/86 97 10/07/20 11:10/07/20 11:21 10/07/20 11:10/07/20 11:10/07/20 11:21 - General well developed, well nourished, no distress - Eyes PERRL - ENT no hearing loss - Neck trachea midline - Respiratory normal expansion, normal respiratory effort - Cardiovascular Rhythm: regular - Abdomen Abdomen: soft, non tender - Integumentary no rash, no growths - Neurologic normal coordination, normal sensation - Musculoskeletal normal posture - Psychiatric oriented to time, oriented to person, oriented to place, speech is normal, memory intact Results - Labs 10/07/20 12:01 10/07/20 12:01 Abnormal Lab Results - Last 24 Hours (Table) 10/07/20 10/07/20 10/07/20 Range/Units 12:01 12:01 12:01 D-Dimer 4.67 H (<0.60) mg/L FEU Chloride 109 H (98-107) mmol/L Carbon Dioxide 21 L (22-30) mmol/L AST 78 H (14-36) U/L ALT 86 H (4-34) U/L Urine Appearance Cloudy H (Clear) Urine Protein 1+ H (Negative) Urine Blood Moderate H (Negative) Ur Leukocyte Esterase Large H (Negative) Urine RBC 109 H (0-5) /hpf Urine WBC 26 H (0-5) /hpf Urine Bacteria Few H (None) /hpf Urine Mucus Rare H (None) /hpf Microbiology - Last 24 Hours (Table) 10/07/20 12:01 Urine Culture - Preliminary Urine,Voided Diabetes panel 10/07/20 Range/Units 12:01 Sodium 138 (137-145) mmol/L Potassium 4.5 (3.5-5.1) mmol/L Chloride 109 H (98-107) mmol/L Carbon Dioxide 21 L (22-30) mmol/L BUN 11 (7-17) mg/dL Creatinine 0.83 (0.52-1.04) mg/dL Glucose 97 (74-99) mg/dL Calcium 8.9 (8.4-10.2) mg/dL AST 78 H (14-36) U/L ALT 86 H (4-34) U/L Alkaline Phosphatase 77 (38-126) U/L Total Protein 6.3 (6.3-8.2) g/dL Albumin 3.5 (3.5-5.0) g/dL Calcium panel 10/07/20 Range/Units 12:01 Calcium 8.9 (8.4-10.2) mg/dL Albumin 3.5 (3.5-5.0) g/dL Pituitary panel 10/07/20 Range/Units 12:01 Sodium 138 (137-145) mmol/L Potassium 4.5 (3.5-5.1) mmol/L Chloride 109 H (98-107) mmol/L Carbon Dioxide 21 L (22-30) mmol/L BUN 11 (7-17) mg/dL Creatinine 0.83 (0.52-1.04) mg/dL Glucose 97 (74-99) mg/dL Calcium 8.9 (8.4-10.2) mg/dL Adrenal panel 10/07/20 Range/Units 12:01 Sodium 138 (137-145) mmol/L Potassium 4.5 (3.5-5.1) mmol/L Chloride 109 H (98-107) mmol/L Carbon Dioxide 21 L (22-30) mmol/L BUN 11 (7-17) mg/dL Creatinine 0.83 (0.52-1.04) mg/dL Glucose 97 (74-99) mg/dL Calcium 8.9 (8.4-10.2) mg/dL Total Bilirubin 0.8 (0.2-1.3) mg/dL AST 78 H (14-36) U/L ALT 86 H (4-34) U/L Alkaline Phosphatase 77 (38-126) U/L Total Protein 6.3 (6.3-8.2) g/dL Albumin 3.5 (3.5-5.0) g/dL - Imaging Abdominal x-ray: report reviewed, image reviewed Assessment and Plan Assessment: Impression: Post urinary tract infection with sepsis pulmonary issues. Possible atelectasis. Possible pneumonia. Recommendations: The stent for the obstructing stone is in place. She is on appropriate antibiotics. From a urologic standpoint nothing needs to be done during this observation. Will need a cystoscopy stent and stone removal in approximately 10 days to 2 weeks. I'll notify of this admission.
[2020-10-08] MEDS: PANTOPRAZOLE 40 MG/10 ML VIAL IVP SCH (09:44)
[2020-10-08] MEDS: ENOXAPARIN 40 MG/0.4 ML SYRINGE SQ SCH (09:45)
[2020-10-08] MEDS: TAMSULOSIN 0.4 MG CAP.ER.24H PO SCH (09:45)
[2020-10-08] MEDS: VANCOMYCIN 1,750 MG in SODIUM CHLORIDE 0.9% 500 ML 500 ML IVPB SCH (11:08)
--- NOTE | 2020-10-08 11:13 | P.CNPUL ---
History of Present Illness Consult date: 10/08/20 Reason for consult: dyspnea History of present illness: Is a very pleasant 45-year-old female patient without any previous history of cardiac disease. The patient came into the emergency because of his exertional dyspnea and orthopnea. Note that the patient has noted approximately 14 pound weight gain and she has noted some increased swelling in lower extremities bilaterally and this has been going on for the past 2 weeks. More recently, she had an underlying urinary tract infection. She was seen in the emergency department for an infected kidney stone. At that time, a CAT scan of the abdomen and pelvis was done and it showed a 7 x 4 mm Medicine the UPJ along with moderate obstructive uropathy and perinephric edema related to the ureteral obstruction and this was involving the left kidney. In addition there was another 5 mm nonobstructive calculus in the left renal system. She had hepatomegaly with a liver size of 21 cm and some mild diverticula in the bladder with some bladder wall thickening consistent with cystitis. At that time, the patient was taken to the operating room. A double-J stent was inserted by urology. Urine culture was positive for E. coli. The patient was discharged home antibiotics and she was given ofloxacin. The patient came back yesterday.. She was having fever of 101. It was hard to breathe. D-dimer was elevated above 4. She underwent a CT angiogram. CTA showed bilateral groundglass changes in the upper lobes more than lower lobes in addition to small bilateral pleural effusion and some cardiomegaly. There was no evidence of any pulmonary embolism. Pulmonary arteries were patent and there was no filling defect. Pneumonia was suspected. The patient was given a combination of Zosyn and vancomycin. Note that there was no reported aspiration around the time of surgery and the patient is not having any significant sputum production. No pleurisy. White cell count is at 7.7. UA still abnormal. COVID-19 testing was negative. Influenza screen was negative. Electrodes are normal. Mild abnormalities in the liver function tests. Review of Systems Constitutional: Reports weight gain Eyes: denies as per HPI, denies blurred vision, denies bulging eye, denies decreased vision, denies diplopia, denies discharge, denies dry eye, denies irritation, denies itching, denies pain, denies photophobia, denies loss of peripheral vision, denies loss of vision, denies tunnel vision/blind spots Ears: deny: decreased hearing, ear discharge, earache, tinnitus Ears, nose, mouth and throat: Reports as per HPI Breasts: absent: as per HPI, change in shape, gynecomastia, masses, nipple discharge, pain, skin changes, swelling Cardiovascular: Reports decreased exercise tolerance, Reports dyspnea on exertion, Reports leg edema, Reports orthopnea, Reports shortness of breath Respiratory: Reports as per HPI, Reports dyspnea Gastrointestinal: Reports as per HPI Genitourinary: Reports dysuria, Reports kidney stones Menstruation: Reports as per HPI Musculoskeletal: Reports as per HPI Musculoskeletal: bilateral: ankle swelling, absent: ankle pain, ankle stiffness Integumentary: Reports as per HPI Neurological: Reports as per HPI Psychiatric: Reports as per HPI Endocrine: Reports as per HPI Hematologic/Lymphatic: Reports as per HPI Allergic/Immunologic: Reports as per HPI 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 History of Any Multi-Drug Resistant Organisms: None Reported Past Surgical History: No Surgical Hx Reported Additional Past Surgical History / Comment(s): ureter stent Past Anesthesia/Blood Transfusion Reactions: No Reported Reaction Past Psychological History: Anxiety, Depression Smoking Status: Never smoker Past Alcohol Use History: Rare Past Drug Use History: None Reported - Past Family History Father Additional Family Medical History / Comment(s): heart issues Mother Family Medical History: Diabetes Mellitus Additional Family Medical History / Comment(s): Type 2 Medications and Allergies Home Medications Medication Instructions Recorded Confirmed Type Escitalopram [Lexapro] 20 mg PO HS@199910/03/20 10/07/20 History Tamsulosin [Flomax] 0.4 mg PO DAILY #7 cap 10/03/20 10/07/20 Rx Ibuprofen [Motrin Ib] 400 - 600 mg PO Q6H PRN 10/04/20 10/07/20 History Levofloxacin [Levaquin] 500 mg PO DAILY 1 Days #10 tab 10/06/20 10/07/20 Rx HYDROcodone/APAP 5-325MG [[place] 1 - 2 tab PO Q4H PRN 10/07/20 10/07/20 History 5-325] Allergies Allergy/AdvReac Type Severity Reaction Status Date / Time Iodinated Contrast Media Allergy Severe Rash/Hives Verified 10/07/20 13:00 Physical Exam Vitals: Vital Signs Temp Pulse Resp BP Pulse Ox 10/08/20 09:31 84 10/08/20 09:20 57 L 10/08/20 06:08 51 L 18 132/87 97 10/08/20 02:53 97.6 F 59 L 16 134/90 97 10/07/20 22:54 60 10/07/20 22:40 60 10/07/20 22:30 98.5 F 55 L 18 119/86 96 10/07/20 16:33 98.8 F 65 18 139/86 95 10/07/20 16:05 61 94 L 10/07/20 11:21 98.8 F 68 18 138/86 97 Gen. appearance, comfortable, breathing is nonlabored Head exam was generally normal. There was no scleral icterus or corneal arcus. Mucous membranes were moist. Neck was supple and without jugular venous distension, thyromegaly, or carotid bruits. Carotids were easily palpable bilaterally. There was no adenopathy. Lungs sounds are diminished in lung bases bilaterally otherwise clear. There could be potentially some few rales in the lung bases bilaterally. Cardiac exam revealed the PMI to be normally situated and sized. The rhythm was regular and no extrasystoles were noted during several minutes of auscultation. The first and second heart sounds were normal and physiologic splitting of the second heart sound was noted. There were no murmurs, rubs, clicks, or gallops. Abdominal exam revealed normal bowel sounds. The abdomen was soft, non-tender, and without masses, organomegaly, or appreciable enlargement of the abdominal aorta. Extremities reveal some trace edema lower extremity is bilaterally. There is no cyanosis or clubbing. Neurologically the patient is awake and alert there is no focal neurological deficit. Examination of the skin revealed no evidence of significant rashes, suspicious appearing nevi or other concerning lesions. Results - Laboratory Findings CBC and BMP: 10/07/20 12:01 10/07/20 12:01 ABG WBC 7.7 k/uL (3.8-10.6) 10/07/20 12:01 RBC 3.93 m/uL (3.80-5.40) 10/07/20 12:01 Hgb 11.6 gm/dL (11.4-16.0) 10/07/20 12:01 Hct 35.2 % (34.0-46.0) 10/07/20 12:01 MCV 89.5 fL (80.0-100.0) 10/07/20 12:01 MCH 29.6 pg (25.0-35.0) 10/07/20 12:01 MCHC 33.0 g/dL (31.0-37.0) 10/07/20 12:01 RDW 13.4 % (11.5-15.5) 10/07/20 12:01 Plt Count 236 k/uL (150-450) 10/07/20 12:01 MPV 8.1 10/07/20 12:01 Neutrophils % 68 % 10/07/20 12:01 Lymphocytes % 18 % 10/07/20 12:01 Monocytes % 9 % 10/07/20 12:01 Eosinophils % 2 % 10/07/20 12:01 Basophils % 1 % 10/07/20 12:01 Neutrophils # 5.2 k/uL (1.3-7.7) 10/07/20 12:01 Lymphocytes # 1.4 k/uL (1.0-4.8) 10/07/20 12:01 Monocytes # 0.7 k/uL (0-1.0) 10/07/20 12:01 Eosinophils # 0.1 k/uL (0-0.7) 10/07/20 12:01 Basophils # 0.0 k/uL (0-0.2) 10/07/20 12:01 D-Dimer 4.67 mg/L FEU (<0.60) H 10/07/20 12:01 Sodium 138 mmol/L (137-145) 10/07/20 12:01 Potassium 4.5 mmol/L (3.5-5.1) 10/07/20 12:01 Chloride 109 mmol/L (98-107) H 10/07/20 12:01 Carbon Dioxide 21 mmol/L (22-30) L 10/07/20 12:01 Anion Gap 8 mmol/L 10/07/20 12:01 BUN 11 mg/dL (7-17) 10/07/20 12:01 Creatinine 0.83 mg/dL (0.52-1.04) 10/07/20 12:01 Est GFR (CKD-EPI)AfAm >90 (>60 ml/min/1.73 sqM) 10/07/20 12:01 Est GFR (CKD-EPI)NonAf 87 (>60 ml/min/1.73 sqM) 10/07/20 12:01 Glucose 97 mg/dL (74-99) 10/07/20 12:01 Plasma Lactic Acid [place] 1.0 mmol/L (0.7-2.0) 10/07/20 12:01 Calcium 8.9 mg/dL (8.4-10.2) 10/07/20 12:01 Total Bilirubin 0.8 mg/dL (0.2-1.3) 10/07/20 12:01 AST 78 U/L (14-36) H 10/07/20 12:01 ALT 86 U/L (4-34) H 10/07/20 12:01 Alkaline Phosphatase 77 U/L (38-126) 10/07/20 12:01 Troponin I 0.025 ng/mL (0.000-0.034) 10/07/20 12:01 Total Protein 6.3 g/dL (6.3-8.2) 10/07/20 12:01 Albumin 3.5 g/dL (3.5-5.0) 10/07/20 12:01 Urine Color Yellow 10/07/20 12:01 Urine Appearance Cloudy (Clear) H 10/07/20 12:01 Urine pH 7.0 (5.0-8.0) 10/07/20 12:01 Ur Specific [place] 1.012 (1.001-1.035) 10/07/20 12:01 Urine Protein 1+ (Negative) H 10/07/20 12:01 Urine Glucose (UA) Negative (Negative) 10/07/20 12:01 Urine Ketones Negative (Negative) 10/07/20 12:01 Urine Blood Moderate (Negative) H 10/07/20 12:01 Urine Nitrite Negative (Negative) 10/07/20 12:01 Urine Bilirubin Negative (Negative) 10/07/20 12:01 Urine Urobilinogen 4.0 mg/dL (<2.0) 10/07/20 12:01 Ur Leukocyte Esterase Large (Negative) H 10/07/20 12:01 Urine RBC 109 /hpf (0-5) H 10/07/20 12:01 Urine WBC 26 /hpf (0-5) H 10/07/20 12:01 Ur Squamous Epith Cells 2 /hpf (0-4) 10/07/20 12:01 Urine Bacteria Few /hpf (None) H 10/07/20 12:01 Urine Mucus Rare /hpf (None) H 10/07/20 12:01 Coronavirus (PCR) Not Detected (Not Detectd) 10/07/20 16:41 Influenza Type A RNA Not Detected (Not Detectd) 10/07/20 16:39 Influenza Type B (PCR) Not Detected (Not Detectd) 10/07/20 16:39 PT/INR, D-dimer D-Dimer 4.67 mg/L FEU (<0.60) H 10/07/20 12:01 Abnormal lab findings: Abnormal Labs 10/07/20 10/07/20 10/07/20 12:01 12:01 12:01 D-Dimer 4.67 H Chloride 109 H Carbon Dioxide 21 L AST 78 H ALT 86 H Urine Appearance Cloudy H Urine Protein 1+ H Urine Blood Moderate H Ur Leukocyte Esterase Large H Urine RBC 109 H Urine WBC 26 H Urine Bacteria Few H Urine Mucus Rare H - Diagnostic Findings Chest x-ray: image reviewed CT scan - chest: image reviewed Assessment and Plan Plan: 1 dyspnea with a component of orthopnea and increased lower extremity edema. CT angios and was reviewed and is consistent with bilateral ground glass pulmonary infiltrates with upper lobe predominance in addition to [place] pleural effusions. This is consistent with fluid overload/CHF. Acute lung injury/ARDS postinfect ious less likely. Aspiration pneumonia is felt to be less likely. The patient is currently on accommodation Zosyn and vancomycin. She is currently on room air oxygen. 2 weight gain with fluid retention in the order of 14 pounds over the past several weeks. 3 recent E. coli urinary tract infection, complicated by a ureteral stone 4 nephrolithiasis with a 7 x 4 mm U UVJ stone and obstructive uropathy involving the left kidney post insertion of a double-J stent.\ 5 hepatomegaly with some abnormality liver function tests, rule out nonalcoholic steatohepatitis PLan Lasix 40 mg IV every 12 hours Check proBNP level Continue antibiotics with Zosyn and vancomycin obtain an echocardiogram to evaluate LV function Check pro calcitonin level Urology has evaluated the patient Fluids to KVO Repeat chest x-ray in a.m. We'll continue to follow.
--- NOTE | 2020-10-08 12:37 | ECHOF ---
Referral Reason:Pleural effusions, CHF MEASUREMENTS -------- HEIGHT: 162.6 cm WEIGHT: 101.6 kg BP: RVIDd: 4.0 cm (< 3.3) IVSd: 0.9 cm (0.6 - 1.1) LVIDd: 3.5 cm (3.9 - 5.3) LVPWd: 1.1 cm (0.6 - 1.1) IVSs: 1.5 cm LVIDs: 1.9 cm LVPWs: 2.0 cm LAESV Index (A-L): 23.44 ml/m Ao Diam: 2.9 cm (2.0 - 3.7) AV Cusp: 1.9 cm (1.5 - 2.6) LA Diam: 3.3 cm (2.7 - 3.8) MV EXCURSION: 15.135 mm (> 18.000) MV EF SLOPE: 167 mm/s (70 - 150) EPSS: 0.7 cm MV E Johnathan: 1.24 m/s MV DecT: 131 ms MV A Johnathan: 0.81 m/s MV E/A Ratio: 1.53 RAP: 20.00 mmHg RVSP: 54.45 mmHg TAPSE: 26.04 mm FINDINGS -------- This was a technically good study. The left ventricular size is normal. Left ventricular wall thickness is normal. Overall left vent ricular systolic function is normal with, an EF between 55 - 60 %. Normal LAP Grade 1 Diastolic Dys function The right ventricle is moderately enlarged. The right ventricular systolic function is normal. The left atrial size is normal. Normal LA size by volume 22+/-6 ml/m2. RA appears enlarged. Interatrial and interventricular septum intact. The aortic valve is trileaflet and appears structurally normal. The mitral valve is normal. Mild mitral regurgitation is present. The tricuspid valve appears structurally normal. Moderate to severe tricuspid regurgitation present . There is moderate pulmonary hypertension. The right ventricular systolic pressure, as measured by Doppler, is 54.45mmHg. There is no pulmonic regurgitation present. The aortic root size is normal. The inferior vena cava is dilated with no significant inspiratory collapse which is consistent estima vandana right atrial pressure of >20 mmHg. There is no pericardial effusion. CONCLUSIONS -------- 1. The left ventricular size is normal. 2. Left ventricular wall thickness is normal. 3. Overall left ventricular systolic function is normal with, an EF between 55 - 60 %. 4. Normal LAP Grade 1 Diastolic Dysfunction 5. The right ventricle is moderately enlarged. 6. The right ventricular systolic function is normal. 7. Mild mitral regurgitation is present. 8. Moderate to severe tricuspid regurgitation present. 9. There is moderate pulmonary hypertension. 10. The right ventricular systolic pressure, as measured by Doppler, is 54.45mmHg. 11. The inferior vena cava is dilated with no significant inspiratory collapse which is consistent es timated right atrial pressure of >20 mmHg. 12. There is no pericardial effusion. [employer]: Alee Chamberlain RDCS
[2020-10-08] MEDS: FUROSEMIDE 10 MG/ML 4 ML VIAL IV SCH ×2 (13:38→20:23)
[2020-10-08] MEDS: ESCITALOPRAM 20 MG TAB PO SCH (20:14)
--- NOTE | 2020-10-08 20:17 | P.HPIM ---
History of Present Illness H&P Date: 10/08/20 Chief Complaint: Chest pressure ,Dyspnea, chills, fevers This is a 45-year-old female with past medical history of kidney stones, recently discharged on 10/06/2020 post acute UTI ,cystoscopy, left RP, stent placement secondary to 7 mm left ureteral stone, elevated LFTs, etiology unclear, anxiety, depression, obesity, and multiple other medical issues presented to the ER with complaints of chest pressure, dyspnea, fevers and chills. Treated outpatient with Levaquin. Reports after discharge on Tuesday night developed fevers and chills. Reports fevers up to 101, accompanied by difficulty exhaling and diaphoresis. Minimal cough, nonproductive. Reports minimal left lower quadrant diffuse abdominal tenderness nonradiating. Reports she just started on her menstrual period today. Denied lightheadedness or dizziness. Chest x-ray reported lungs are clear, no pneumothorax pleural effusion or focal pneumonia, heart size normal, subsegmental changes of the lung bases, coarsened interstitium. Elevated d-dimer, chest CTA reported no evidence for pulmonary embolism, correlate for underlying pneumonia- Scattered airspace and groundglass infiltrates throughout both lung velasco as well as bilateral pleural effusions. EKG reported normal sinus rhythm, troponin 0.025. KUB pending. On admission, afebrile, normal WBC, maintaining O2 sats in the high 90s on room air. Sodium 138, potassium 4.5, chloride 109, bicarb 21, BUN 11, creatinine 0.83, glucose 97, lactic acid 1 , minimally elevated AST, ALT. UA reporting 26 WBCs, large leukocytes, negative nitrates, moderate blood, 1+ protein. coronavirus, influenza A/B not detected . Legionella negative .Zosyn and vancomycin initiated in the ER secondary to suspicions for possible hospital-acquired pneumonia from prior admission. Review of Systems ROS Statement: Those systems with pertinent positive or pertinent negative responses have been documented in the HPI. ROS Other: All systems not noted in ROS Statement are negative. 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 History of Any Multi-Drug Resistant Organisms: None Reported Past Surgical History: No Surgical Hx Reported Additional Past Surgical History / Comment(s): ureter stent Past Anesthesia/Blood Transfusion Reactions: No Reported Reaction Past Psychological History: Anxiety, Depression Smoking Status: Never smoker Past Alcohol Use History: Rare Past Drug Use History: None Reported - Past Family History Father Additional Family Medical History / Comment(s): heart issues Mother Family Medical History: Diabetes Mellitus Additional Family Medical History / Comment(s): Type 2 Medications and Allergies Home Medications Medication Instructions Recorded Confirmed Type Escitalopram [Lexapro] 20 mg PO HS@2000 10/03/20 10/07/20 History Tamsulosin [Flomax] 0.4 mg PO DAILY #7 cap 10/03/20 10/07/20 Rx Ibuprofen [Motrin Ib] 400 - 600 mg PO Q6H PRN 10/04/20 10/07/20 History Levofloxacin [Levaquin] 500 mg PO DAILY 1 Days #10 tab 10/06/20 10/07/20 Rx HYDROcodone/APAP 5-325MG [[place] 1 - 2 tab PO Q4H PRN 10/07/20 10/07/20 History 5-325] Allergies Allergy/AdvReac Type Severity Reaction Status Date / Time Iodinated Contrast Media Allergy Severe Rash/Hives Verified 10/07/20 13:00 Physical Exam Vitals: Vital Signs Temp Pulse Resp BP Pulse Ox 10/08/20 06:08 51 L 18 132/87 97 10/08/20 02:53 97.6 F 59 L 16 134/90 97 10/07/20 22:54 60 10/07/20 22:40 60 10/07/20 22:30 98.5 F 55 L 18 119/86 96 10/07/20 16:33 98.8 F 65 18 139/86 95 10/07/20 16:05 61 94 L 10/07/20 11:21 98.8 F 68 18 138/86 97 PHYSICAL EXAM: VITAL SIGNS: As above GENERAL: Sitting up in bed, no acute distress HEENT: Conjunctivae normal. eyes normal. NECK: No JVD. No thyroid enlargement. No LNs CARDIOVASCULAR: S1, S2 regular.. No murmur RESPIRATION: Breath sounds diminished in the bases. Minimal Fine bibasilar crackles. ABDOMEN: Soft, nondistended, mild left lower quadrant tenderness . No guarding. no masses palpable. No ascites, No hepatosplenomegaly.Bowel sounds heard. LEGS: Trace edema, no cyanosis, no clubbing, no calf pain. PSYCHIATRY: Alert and oriented X3, mood and affect normal. NERVOUS SYSTEM: Cranial N 2-12 grossly normal. Moves all 4 limbs. No focal deficits. Strength and sensation grossly intact. Skin: Warm and dry, no rash Lymphatic system. No LN neck axilla. Results CBC & Chem 7: 10/07/20 12:10/07/20 12:01 Labs: Abnormal Lab Results - Last 24 Hours (Table) 10/07/20 10/07/20 10/07/20 Range/Units 12: 12: 12:01 D-Dimer 4.67 H (<0.60) mg/L FEU Chloride 109 H (98-107) mmol/L Carbon Dioxide 21 L (22-30) mmol/L AST 78 H (14-36) U/L ALT 86 H (4-34) U/L Urine Appearance Cloudy H (Clear) Urine Protein 1+ H (Negative) Urine Blood Moderate H (Negative) Ur Leukocyte Esterase Large H (Negative) Urine RBC 109 H (0-5) /hpf Urine WBC 26 H (0-5) /hpf Urine Bacteria Few H (None) /hpf Urine Mucus Rare H (None) /hpf Microbiology - Last 24 Hours (Table) 10/07/20 12:01 Urine Culture - Preliminary Urine,Voided Assessment and Plan Assessment: Fevers, chills, dyspnea , poss Acute bilateral pneumonia, failure of outpatient treatment, possibly hospital-acquired, in a patient discharged from the hospital 48 hours ago, but afebrile with normal WBC on admission, possibly fluid overload-reports a weight gain of 14 pounds over the last few weeks. CTA reporting bilateral pleural effusions. Possible Acute UTI, culture pending Nephrolithiasis, recent cystoscopy, left RP, stent placement secondary to 7 mm left ureteral stone discharged on [id number] hours ago. Ureteroscopy at a later date secondary to infection as per urology. Recent UTI with E. coli History of elevated LFTs, etiology unclear, possibly fatty liver Obesity, BMI 38.4 Plan: Continue on current medication regime ,monitoring and symptomatic treatment. Blood cultures and urine cultures pending. Maintain IV antibiotics of vancomycin and Zosyn, and IV push diuretics. Procalcitonin/ Echo pending. Close monitoring of renal function with repeat labs ordered for a.m. Aggressive pulmonary toileting with incentive spirometer ordered.pulmonary and urology consult in place, recommendations pending.PPI added for GI prophylaxis. The impression and plan of care has been dictated as directed. : I performed a history and examination of this patient, discussed the same with the dictator. I agree with the dictator's note ,documented as a scribe. Any additional findings or plans will be noted.
[2020-10-09] MEDS: VANCOMYCIN 1,750 MG in SODIUM CHLORIDE 0.9% 500 ML 500 ML IVPB SCH ×2 (00:03→10:25)
[2020-10-09] MEDS: PIPERACILLIN-TAZOBACTAM 3.375 GM in SODIUM CHLORIDE 0.9% 100 ML IVPB SCH ×2 (04:44→15:11)
[2020-10-09] MEDS: IPRATROPIUM-ALBUTEROL 3 ML NEB INHALATION SCH ×3 (07:08→16:03)
--- NOTE | 2020-10-09 07:49 | P.PN ---
Subjective Progress Note Date: 10/09/20 The patient is in the hospital post-urinary tract infection with sepsis due to an obstructing stone. She had a stent placed. She was discharged home. She returned with shortness of breath. It appears to be due to fluid overload from the acute situation. She is recirculating her fluid and this led to the temporary pulmonary edema. She feels much better and is breathing well. There is nothing from a urologic standpoint needs to be done. Again she should be seen in our office by in one week to set up a ureteroscopic stone extraction Objective - Vital Signs Vital signs: Vital Signs Temp 98.0 F 10/09/20 01:19 Pulse 72 10/09/20 01:19 Resp 18 10/09/20 01:19 BP 116/79 10/09/20 01:19 Pulse Ox 97 10/09/20 01:19 Intake & Output 10/08/20 10/09/20 10/09/20 18:59 06:59 18:59 Intake Total 360 Balance 360 Intake: Oral 360 Other: # Voids 2 4 - Labs CBC & Chem 7: 10/07/20 12:01 10/07/20 12:01 Labs: Abnormal Lab Results - Last 24 Hours (Table) 10/08/20 Range/Units 11:40 Procalcitonin 0.43 H (0.02-0.09) ng/mL Microbiology - Last 24 Hours (Table) 10/07/20 12:01 Urine Culture - Final Urine,Voided 10/07/20 12:01 Blood Culture - Preliminary Blood No Growth after 24 hours 10/07/20 12:01 Blood Culture - Preliminary Blood No Growth after 24 hours
[2020-10-09] MEDS: PANTOPRAZOLE 40 MG/10 ML VIAL IVP SCH (08:05)
[2020-10-09] MEDS: ENOXAPARIN 40 MG/0.4 ML SYRINGE SQ SCH ×2 (08:06→08:07)
[2020-10-09] MEDS: FUROSEMIDE 10 MG/ML 4 ML VIAL IV SCH (08:06)
[2020-10-09] MEDS: TAMSULOSIN 0.4 MG CAP.ER.24H PO SCH (08:06)
[2020-10-09 08:18] VITALS: RESP 16
[2020-10-09 08:28] LABS: African American GFR (CKD) 68 (>60 ml/min/1.73 sqM); Anion Gap 10 mmol/L; Blood Urea Nitrogen 18 mg/dL (7-17); Carbon Dioxide 28 mmol/L (22-30); Chloride 103 mmol/L (98-107); Glucose 89 mg/dL (74-99); Non-African American GFR(CKD) 59 (>60 ml/min/1.73 sqM); Potassium 3.4 mmol/L (3.5-5.1); Sodium 141 mmol/L (137-145)
--- NOTE | 2020-10-09 10:26 | XR ---
EXAMINATION TYPE: XR chest 2V DATE OF EXAM: 10/09/2020 COMPARISON: Chest x-ray and chest CT 10/07/2020 HISTORY: Congestive heart failure, pneumonia, sepsis TECHNIQUE: Frontal and lateral views of the chest are obtained. FINDINGS: There is no focal air space opacity or pneumothorax seen. Blunting of the costophrenic ang les is noted. There are overlying artifacts. The cardiac silhouette size is within normal limits. T he osseous structures are intact. IMPRESSION: There may be minimal effusions and associated atelectasis, suspect improved aeration, vo lume status within the lungs.
[2020-10-09 11:16] LABS: Basophils # (A) 0.12 X 10*3/uL (0.00-0.10); Basophils % (A) 1.1 %; Eosinophils # (A) 0.34 X 10*3/uL (0.04-0.35); HCT 40.3 % (37.2-46.3); HGB 12.7 g/dL (12.0-15.0); Lymphocytes # (A) 3.13 X 10*3/uL (0.90-5.00); MCH 27.7 pg (27.0-32.0); MCHC 31.5 g/dL (32.0-37.0); MCV 87.8 fL (80.0-97.0); Mean Platelet Volume 11.5 fL (9.5-12.2); Monocytes # (A) 0.74 X 10*3/uL (0.20-1.00); Monocytes % (A) 6.6 %; Neutrophils # (A) 6.65 X 10*3/uL (1.80-7.70); Neutrophils % (A) 59.6 %; Platelet Count 322 X 10*3/uL (140-440); RBC 4.59 X 10*6/uL (4.10-5.20); RDW 13.5 % (11.5-14.5); WBC 11.17 X 10*3/uL (4.50-10.00)
--- NOTE | 2020-10-09 12:54 | P.PN ---
Subjective Progress Note Date: 10/09/20 Is a very pleasant 45-year-old female patient without any previous history of cardiac disease. The patient came into the emergency because of his exertional dyspnea and orthopnea. Note that the patient has noted approximately 14 pound weight gain and she has noted some increased swelling in lower extremities bilaterally and this has been going on for the past 2 weeks. More recently, she had an underlying urinary tract infection. She was seen in the emergency department for an infected kidney stone. At that time, a CAT scan of the abdomen and pelvis was done and it showed a 7 x 4 mm Medicine the UPJ along with moderate obstructive uropathy and perinephric edema related to the ureteral obstruction and this was involving the left kidney. In addition there was another 5 mm nonobstructive calculus in the left renal system. She had hepatomegaly with a liver size of 21 cm and some mild diverticula in the bladder with some bladder wall thickening consistent with cystitis. At that time, the patient was taken to the operating room. A double-J stent was inserted by urology. Urine culture was positive for E. coli. The patient was discharged home antibiotics and she was given ofloxacin. The patient came back yesterday.. She was having fever of 101. It was hard to breathe. D-dimer was elevated above 4. She underwent a CT angiogram. CTA showed bilateral groundglass changes in the upper lobes more than lower lobes in addition to small bilateral pleural effusion and some cardiomegaly. There was no evidence of any pulmonary embolism. Pulmonary arteries were patent and there was no filling defect. Pneumonia was suspected. The patient was given a combination of Zosyn and vancomycin. Note that there was no reported aspiration around the time of surgery and the patient is not having any significant sputum production. No pleurisy. White cell count is at 7.7. UA still abnormal. COVID-19 testing was negative. Influenza screen was negative. Electrodes are normal. Mild a bnormalities in the liver function tests. On todays' Evaluation on 10/09/2020 patient seen in follow-up on medical surgical floor. She continues on IV Lasix gram twice daily, she has extensively diuresed, states she is breathing much easier, she remains on room air, she states she is able to take deeper breaths, and talk without becoming dyspneic. Lung sounds are clear to auscultation, today's chest x-ray has been reviewed showing improvement in aeration bilaterally. She states the generalized edema has improved, and swelling in her upper and lower extremities and including her abdominal wall have significantly improved, she is tolerating ambulation, she remains on a combination of antibiotics, Zosyn and vancomycin, no fever or chills overnight. No flank pain, no hematuria, his urine is clearing up. Reviewed including blood and urine cultures and are negative thus far. Today sodium is 141, potassium is 3.4, chloride is 103, B1 is 18 and creatinine is 1.14. No nausea vomiting or diarrhea, no complaints of chest discomfort, no coughing or wheezing. Objective - Vital Signs Vital signs: Vital Signs Temp 97.8 F 10/09/20 07:00 Pulse 68 10/09/20 07:00 Resp 16 10/09/20 07:00 BP 132/87 10/09/20 07:00 Pulse Ox 96 10/09/20 07:00 Intake & Output 10/08/20 10/09/20 10/09/20 18:59 06:59 18:59 Intake Total 360 236 Balance 360 236 Intake: Oral 360 236 Other: # Voids 2 4 - Exam GENERAL EXAM: Alert, very pleasant 45-year-old white female, on room air, with a pulse ox of 98% comfortable in no apparent distress. HEAD: Normocephalic/atraumatic. EYES: Normal reaction of pupils, equal size. Conjunctiva pink, sclera white. NOSE: Clear with pink turbinates. THROAT: No erythema or exudates. NECK: No masses, no JVD, no thyroid enlargement, no adenopathy. CHEST: No chest wall deformity. Symmetrical expansion. LUNGS: Equal air entry with no crackles, wheeze, rhonchi or dullness. CVS: Regular rate and rhythm, normal S1 and S2, no gallops, no murmurs, no rubs ABDOMEN: Soft, nontender. No hepatosplenomegaly, normal bowel sounds, no guarding or rigidity. EXTREMITIES: No clubbing, no edema, no cyanosis, 2+ pulses and upper and lower extremities. MUSCULOSKELETAL: Muscle strength and tone normal. SPINE: No scoliosis or deformity SKIN: No rashes CENTRAL NERVOUS SYSTEM: Alert and oriented -3. No focal deficits, tone is norm al in all 4 extremities. PSYCHIATRIC: Alert and oriented -3. Appropriate affect. Intact judgment and insight. - Labs CBC & Chem 7: 10/09/20 07:45 10/09/20 07:45 Labs: Abnormal Lab Results - Last 24 Hours (Table) 10/08/20 10/09/20 Range/Units 11:40 07:45 Potassium 3.4 L (3.5-5.1) mmol/L BUN 18 H (7-17) mg/dL Creatinine 1.14 H (0.52-1.04) mg/dL Procalcitonin 0.43 H (0.02-0.09) ng/mL Microbiology - Last 24 Hours (Table) 10/07/20 12:01 Urine Culture - Final Urine,Voided 10/07/20 12:01 Blood Culture - Preliminary Blood No Growth after 24 hours 10/07/20 12:01 Blood Culture - Preliminary Blood No Growth after 24 hours Assessment and Plan Plan: Assessment: 1 dyspnea with a component of orthopnea and increased lower extremity edema. CT angios and was reviewed and is consistent with bilateral ground glass pulmonary infiltrates with upper lobe predominance in addition to [place] pleural effusions. This is consistent with fluid overload/CHF. Acute lung injury/ARDS postinfectious less likely. Aspiration pneumonia is felt to be less likely. The patient is currently on accommodation Zosyn and vancomycin. She is currently on room air oxygen. 2 weight gain with fluid retention in the order of 14 pounds over the past several weeks. 3 recent E. coli urinary tract infection, complicated by a ureteral stone 4 nephrolithiasis with a 7 x 4 mm U UVJ stone and obstructive uropathy involving the left kidney post insertion of a double-J stent.\ 5 hepatomegaly with some abnormality liver function tests, rule out nonalcoholic steatohepatitis Plan: Patient has extensively diuresed, better, breathing easier, is showing improved aeration Continue IV Lasix till discharge, patient may switch to 1 mg Lasix daily after discharge Cultures have been reviewed, negative thus far, will discontinue vancomycin, Echocardiogram showed preserved LV function, but did show moderate pulmonary hypertension Increase activity as tolerated We will discontinue vancomycin, continue Zosyn, patient can be switched to oral antibiotics She can be considered for discharge home today from pulmonary perspective with outpatient follow-up for Dr. Morris in the office in 7-10 days She may need further investigation for pulmonary hypertension once the fluid volume is optimized and this will be done on outpatient basis. Time with Patient: Less than 30
[2020-10-09] MEDS ORDERED: Potassium Replacement Protocol 1 EACH MISC MISCELLANE PRN ×2 (13:19→13:42)
[2020-10-09 14:38] VITALS: BP 121/79; PULSE 72; TEMP 98.3
[2020-10-09] MEDS: POTASSIUM CHLORIDE ER 20 MEQ TAB.ER PO SCH ×2 (15:11→16:27)
[2020-10-10] MEDS ORDERED: VANCOMYCIN TROUGH DUE 1 EACH MISC MISCELLANE ONE (09:00)
--- NOTE | 2020-10-10 14:35 | P.DS ---
Providers Date of admission: 10/07/20 19:12 Expected date of discharge: 10/10/20 Attending physician: Drew Lugo Consults: 10/07/20 19:12 Consult Physician Routine Consulting Provider: Venkatesh Morris Consult Reason/Comments: pneumonia Do you want consulting provider notified?: Yes 10/07/20 19:17 Consult Physician Routine Consulting Provider: Brian Garvin Consult Reason/Comments: septic stone Do you want consulting provider notified?: Yes Primary care physician: Drew Lugo Hospital Course: Final Diagnoses: Fevers, chills, dyspnea , secondary to fluid overload, secondary to recent cystoscopy, poss Acute bilateral pneumonia-less likely as per pulmonary .CTA on admission reporting bilateral groundglass pulmonary infiltrates with upper lobe predominance in addition to bilateral pleural effusions. Significant improvement with diuretic treatment. Recent UTI, current culture reporting no growth after 18 hours Nephrolithiasis, recent cystoscopy, left RP, stent placement secondary to 7 mm left ureteral stone discharged on [id number] hours ago. Ureteroscopy at a later date secondary to infection as per urology. Recent UTI with E. coli History of elevated LFTs, etiology unclear, possibly fatty liver Obesity, BMI 38.4 Hospital course: This is a 45-year-old female with past medical history of kidney stones, recently discharged on 10/06/2020 post acute UTI ,cystoscopy, left RP, stent placement secondary to 7 mm left ureteral stone, elevated LFTs, etiology unclear, anxiety, depression, obesity, and multiple other medical issues presented to the ER with complaints of chest pressure, dyspnea, fevers and chills. Treated outpatient with Levaquin. Reports after discharge on Tuesday night developed fevers and chills. Reports fevers up to 101, accompanied by difficulty exhaling and diaphoresis. Minimal cough, nonproductive. Reports minimal left lower quadrant diffuse abdominal tenderness nonradiating. Reports she just started on her menstrual period today. Denied lightheadedness or dizziness. Chest x-ray reported lungs are clear, no pneumothorax pleural effusion or focal pneumonia, heart size normal, subsegmental changes of the lung bases, coarsened interstitium. Elevated d-dimer, chest CTA reported no evidence for pulmonary embolism, correlate for underlying pneumonia- Scattered airspace and groundglass infiltrates throughout both lung velasco as well as bilateral pleural effusions. EKG reported normal sinus rhythm, troponin 0.025. KUB pending. On admission, afebrile, normal WBC, maintaining O2 sats in the high 90s on room air. Sodium 138, potassium 4.5, chloride 109, bicarb 21, BUN 11, creatinine 0.83, glucose 97, lactic acid 1 , minimally elevated AST, ALT. UA reporting 26 WBCs, large leukocytes, negative nitrates, moderate blood, 1+ protein. coronavirus, influenza A/B not detected . Legionella negative .Zosyn and vancomycin initiated in the ER secondary to suspicions for possible hospital-acquired pneumonia from prior admission. Upon further discussion with urology, patient received significant IV fluids with recent cystoscopy procedure-nearly 6 L of fluid. Significant clinical improvement on diuretic treatment. Lungs CTA. Edema resolved. repeat chest x- ray reporting improvement in aeration bilaterall with minimal effusions and associated atelectasis. Afebrile. Maintaining O2 sats in the mid 90s on room air. Ambulating, tolerating exertion well. Denies chest pain, palpitations or increasing shortness of breath. Denies nausea vomiting or abdominal pain. Denies flank pain. Patient has been cleared by pulmonary for discharge and will continue on small dose of Lasix. Patient has been advised to complete prior antibiotics prescribed. Patient will be discharged home today in a stable condition with guarded prognosis. The impression and plan of care has been dictated as directed. : I performed a history and examination of this patient, discussed the same with the dictator. I agree with the dictator's note ,documented as a scribe. Any additional findings or plans will be noted. Patient Condition at Discharge: Stable Plan - Discharge Summary Discharge Rx Participant: No New Discharge Prescriptions: New Furosemide [Lasix] 20 mg PO DAILY 30 Days #30 tablet No Action Escitalopram [Lexapro] 20 mg PO HS@1999 Levofloxacin [Levaquin] 500 mg PO DAILY 1 Days #10 tab HYDROcodone/APAP 5-325MG [[place] 5-325] 1 - 2 tab PO Q4H PRN PRN Reason: Moderate To Severe Pain Tamsulosin [Flomax] 0.4 mg PO DAILY #7 cap Ibuprofen [Motrin Ib] 400 - 600 mg PO Q6H PRN PRN Reason: Pain Discharge Medication List Escitalopram [Lexapro] 20 mg PO HS@199910/03/20 [History] Tamsulosin [Flomax] 0.4 mg PO DAILY #7 cap 10/03/20 [Rx] Ibuprofen [Motrin Ib] 400 - 600 mg PO Q6H PRN 10/04/20 [History] Levofloxacin [Levaquin] 500 mg PO DAILY 1 Days #10 tab 10/06/20 [Rx] HYDROcodone/APAP 5-325MG [[place] 5-325] 1 - 2 tab PO Q4H PRN 10/07/20 [History] Furosemide [Lasix] 20 mg PO DAILY 30 Days #30 tablet 10/09/20 [Rx] Follow up Appointment(s)/Referral(s): Drew Lugo DO [Primary Care Provider] - 10/17/20 9:00 am Rico Leong MD [STAFF PHYSICIAN] - 1 Week (Please call and make an appointment) Venkatesh Morris MD [STAFF PHYSICIAN] - 10/28/20 3:15 pm (With Deborah) Ambulatory/Diagnostic Orders: Basic Metabolic Panel [LAB.AMB] Time Frame: 3 Days, Location: None Selected Patient Instructions/Handouts: Kidney Stones (DC), Community Acquired Pneumonia (DC) Activity/Diet/Wound Care/Special Instructions: Pending potassium supplementation, final DC recommendations/diuretics, clearance as per pulmonary. Confirm pulmonary follow-up appointment prior to discharge. Discharge Disposition: HOME SELF-CARE
--- NOTE | 2020-10-14 10:42 | CDI ---
Documentation Clarification Form Date: 10/14/2020 10:34:18 AM From: Scott Dickson Admit Date: 10/07/2020 07:12:00 PM Patient Name: aWnda Kidd Visit Number: [id number] Discharge Date: 10/09/2020 05:05:00 PM ATTENTION: The Clinical Documentation Specialists (CDI) and [facility] Coding Staff appreciate your assistance in clarifying documentation. Please respond to the clarification below the line at the bottom and electronically sign. The CDI & [facility] Coding staff will review the response and follow-up if needed. Please note: Queries are made part of the Legal Health Record. If you have any questions, please contact the author of this message via ITS. Dr. Drew Lugo Your patient has the documented diagnosis of unspecified CHF in progress note 10/09.Additional information regarding the [type, acuity] of CHF is requested. History/Risk Factors: Hx of CHF Clinical Indicators: volume overload Echocardiogram Results: EF 55-60% with diastolic CHF Chest X Ray: fluid overload Treatment: In your professional opinion, can you please clarify the [acuity and type] of CHF if known? [ ] Acute Systolic Heart Failure (reduced EF) [ ] Chronic Systolic Heart Failure (reduced EF) [ ] Acute on Chronic Systolic Heart Failure (reduced EF) [X ] Acute Diastolic Heart Failure (preserved EF) [ ] Chronic Diastolic Heart Failure (preserved EF) [ ] Acute on Chronic Diastolic Heart Failure (preserved EF) [ ] Acute Systolic & Diastolic Heart Failure [ ] Chronic Systolic & Diastolic Heart Failure [ ] Acute on Chronic Heart Failure Systolic & Diastolic Heart Failure [ ] Other, please specify [ ] Unable to determine MTDD
== END 2020-10-09 17:05 | disposition home or self-care (01) | DRG 291 ==
LOC: EC 11:15 → 4SSUR 19:12 → 1SOBS 10-08 07:22 → 4SSUR 10-08 15:33
PROVIDERS: ADMIT Family Medicine; ATTEND Family Medicine
DX: I11.0 Hypertensive heart disease with heart failure (principal); I50.31 Acute diastolic (congestive) heart failure; J18.9 Pneumonia, unspecified organism; N20.2 Calculus of kidney with calculus of ureter; Z20.822 Contact with and (suspected) exposure to COVID-19; R16.0 Hepatomegaly, not elsewhere classified; N32.3 Diverticulum of bladder; Z83.3 Family history of diabetes mellitus; Z87.442 Personal history of urinary calculi; Z79.899 Other long term (current) drug therapy; I27.29 Other secondary pulmonary hypertension; I07.1 Rheumatic tricuspid insufficiency; E66.9 Obesity, unspecified; Z68.38 Body mass index [BMI] 38.0-38.9, adult; Z87.440 Personal history of urinary (tract) infections
CPT/HCPCS: 36415; 71046; 71275; 74018; 80048; 80053; 81001; 83605; 83880; 84145; 84484; 85025; 85379; 87040; 87086; 87449; 87502; 87635; 93005; 93306; 96374; 96375; 99285

== ENCOUNTER → 2023-02-08 | Outpatient (CLI) | payer BC ==
--- NOTE | 2023-02-09 08:59 | MM ---
Reason for Exam: Screening (asymptomatic). Baseline mammogram. Patient History: Menarche at age 15. First Full-Term at age 24. Perimenopausal. Maternal grandmother had breast cancer at or over age 50. Maternal aunt had breast cancer. Maternal aunt had breast cancer. Risk Values: Raquel 5 year model risk: 0.8%. NCI Lifetime model risk: 8.5%. Prior Study Comparison: Patient's first Mammogram. Tissue Density: The breast tissue is heterogeneously dense. This may lower the sensitivity of mammography. Findings: Analyzed By CAD. There is no suspicious group of microcalcifications or new suspicious mass. Overall Assessment: Negative, BI-RAD 1 Management: Screening Mammogram of both breasts in [address] [facility] will attempt to contact patient to return for supplemental views and ultrasound if indicated. Patient should continue monthly self-breast exams. A clinical breast exam by your physician is recommended on an annual basis. This exam should not preclude additional follow-up of suspicious palpable abnormalities. Note on Raquel scores and lifetime risk: 1. A Raquel score greater than 3% is considered moderate risk. If this is the case, consider specialist referral to assess eligibility for a risk reducing agent. 2. If overall lifetime risk for the development of breast cancer is 20% or higher, the patient may qualify for future screening with alternating mammogram and breast MRI. Electronically signed and approved by: Ryan Luz DO
== END | disposition home or self-care (01) ==
LOC: RADMAMWWP 08:27
PROVIDERS: ATTEND Family Medicine
DX: Z12.31 Encounter for screening mammogram for malignant neoplasm of breast (principal); Z80.3 Family history of malignant neoplasm of breast; Z78.0 Asymptomatic menopausal state
CPT/HCPCS: 77063; 77067

== ENCOUNTER 2023-10-09 08:08 | Emergency (ER) | payer BC ==
--- NOTE | 2023-10-09 09:03 | ED ---
Skin/Abscess/FB HPI - General Chief complaint: Skin/Abscess/Foreign Body Stated complaint: Rash Time Seen by Provider: 10/09/23 09:00 Source: patient, RN notes reviewed Mode of arrival: ambulatory Limitations: no limitations - History of Present Illness Initial comments: 48 yea old female presenting to the ER with a chief complaint of a rash. Patient recently returned from [place] after picking up her adoptive child. She states rash is pruritic and erythematous in nature. She denies any new lotions, soaps, foods or products. Rash covers bilateral lower extremities with minimal spread to upper extremities. Patient saw a telehealth doctor yesterday and was treated for scabies with permethrin, without improvement. She denies any fevers, chills, nausea, vomiting or other complaints. - Related Data Home Medications Medication Instructions Recorded Confirmed Escitalopram [Lexapro] 20 mg PO HS@199910/03/20 10/07/20 Ibuprofen [Motrin Ib] 400 - 600 mg PO Q6H PRN 10/04/20 10/07/20 HYDROcodone/APAP 5-325MG [Rena Lara 1 - 2 tab PO Q4H PRN 10/07/20 10/07/20 5-325] Previous Rx's Medication Instructions Recorded Tamsulosin [Flomax] 0.4 mg PO DAILY #7 cap 10/03/20 Levofloxacin [Levaquin] 500 mg PO DAILY 1 Days #10 tab 10/06/20 Furosemide [Lasix] 20 mg PO DAILY 30 Days #30 tablet 10/09/20 hydrOXYzine HCL [Atarax] 10 mg PO TID #10 tab 10/09/23 Allergies Allergy/AdvReac Type Severity Reaction Status Date / Time Iodinated Contrast Media Allergy Severe Rash/Hives Verified 10/09/23 08:20 Review of Systems ROS Statement: Those systems with pertinent positive or pertinent negative responses have been documented in the HPI. ROS Other: All systems not noted in ROS Statement are negative. 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 History of Any Multi-Drug Resistant Organisms: None Reported Past Surgical History: No Surgical Hx Reported Additional Past Surgical History / Comment(s): ureter stent Past Anesthesia/Blood Transfusion Reactions: No Reported Reaction Past Psychological History: Anxiety, Depression Smoking Status: Never smoker Past Alcohol Use History: Rare Past Drug Use History: None Reported - Past Family History Father Additional Family Medical History / Comment(s): heart issues Mother Family Medical History: Diabetes Mellitus Additional Family Medical History / Comment(s): Type 2 General Exam Limitations: no limitations General appearance: alert, in no apparent distress Respiratory exam: Present: normal lung sounds bilaterally. Absent: respiratory distress, wheezes, rales, rhonchi, stridor Cardiovascular Exam: Present: regular rate, normal rhythm, normal heart sounds. Absent: systolic murmur, diastolic murmur, rubs, gallop, clicks Extremities exam: Present: normal inspection, full ROM, normal capillary refill. Absent: tenderness, pedal edema, joint swelling, calf tenderness Neurological exam: Present: alert, oriented X3, CN II-XII intact Skin exam: Present: rash (Erythematous macular rash to bilateral lower extremities. Minimal spread to upper extremities) Course Vital Signs 10/09/23 10/09/23 08:16 09:22 Temperature 98.5 F 98.9 F Pulse Rate 93 95 Respiratory 16 18 Rate Blood Pressure 103/77 110/85 O2 Sat by Pulse 99 95 Oximetry Medical Decision Making - Medical Decision Making Was pt. sent in by a medical professional or institution (, PA, COAT CUTTER, urgent care, hospital, or assisted...) When possible be specific @ -No Did you speak to anyone other than the patient for history (EMS, parent, family, police, friend...)? What history was obtained from this source @ -No Did you review nursing and triage notes (agree or disagree)? Why? @ -I reviewed and agree with nursing and triage notes Were old charts reviewed (outside hosp., previous admission, EMS record, old EKG, old radiological studies, urgent care reports/EKG's, assisted records)? Report findings @ -No old charts were reviewed Differential Diagnosis (chest pain, altered mental status, abdominal pain women, abdominal pain men, vaginal bleeding, weakness, fever, dyspnea, syncope, h eadache, dizziness, GI bleed, back pain, seizure, CVA, palpatations, mental health, musculoskeletal)? @Viral exanthem, scabies, chickenpox, molluscum This list is not meant to be all-inclusive EKG interpreted by me (3pts min.). @ -None none X-rays interpreted by me (1pt min.). @ -None done CT interpreted by me (1pt min.). @ -None done U/S interpreted by me (1pt. min.). @ -None done What testing was considered but not performed or refused? (CT, X-rays, U/S, labs)? Why? @ -None What meds were considered but not given or refused? Why? @ -None Did you discuss the management of the patient with other professionals (professionals i.e. , PA, COAT CUTTER, lab, RT, psych nurse, manager social, multineedle shirrer, teacher, customs patrol officer, case assembler)? Give summary @ -No Was smoking cessation discussed for >3mins.? @ -No Was critical care preformed (if so, how long)? @ -No Were there social determinants of health that impacted care today? How? (Homelessness, low income, unemployed, alcoholism, drug addiction, transportation, low edu. Level, literacy, decrease access to med. care, retirement, rehab)? @ -No Was there de-escalation of care discussed even if they declined (Discuss DNR or withdrawal of care, Hospice)? DNR status @ -No What co-morbidities impacted this encounter? (DM, HTN, Smoking, COPD, CAD, Cancer, CVA, ARF, Chemo, Hep., AIDS, mental health diagnosis, sleep apnea, morbid obesity)? @ -None Was patient admitted / discharged? Hospital course, mention meds given and route, prescriptions, significant lab abnormalities, going to OR and other pertinent info. @ -48-year-old female presented the ER with a chief complaint of rash. History and physical exam completed. Vitals stable. Patient no signs of acute distress and nontoxic-appearing. Erythematous macular rash to bilateral lower extremities and minimal involvement of upper extremities. Rash believed to be a bug bite/allergic in nature. IM Solu-Medrol given. Hydroxyzine prescribed. Patient verbally expressed understanding and agreed with care plan. Return parameters discussed. Patient discharged in stable condition with follow-up to PCP. Case discussed with ED attending, Dr. Calderon. Undiagnosed new problem with uncertain prognosis? @ -No Drug Therapy requiring intensive monitoring for toxicity (Heparin, Nitro, Insulin, Cardizem)? @ -No Were any procedures done? @ -No Diagnosis/symptom? @ -Rash Acute, or Chronic, or Acute on Chronic? @ -Acute Uncomplicated (without systemic symptoms) or Complicated (systemic symptoms)? @ -Uncomplicated Side effects of treatment? @ -No Exacerbation, Progression, or Severe Exacerbation? @ -No Poses a threat to life or bodily function? How? (Chest pain, [place], [place], pneumonia, PE, COPD, DKA, ARF, appy, cholecystitis, CVA, Diverticulitis, Homicidal, Suicidal, threat to staff... and all critical care pts) @ -No Disposition Clinical Impression: Rash Disposition: HOME SELF-CARE Condition: Stable Additional Instructions: Follow-up with PCP. Return to the ER for any new or worsening symptoms . Prescriptions: hydrOXYzine HCL [Atarax] 10 mg PO TID #10 tab Is patient prescribed a controlled substance at d/c from ED?: No Referrals: Drew Lugo DO [Primary Care Provider] - 1-2 days Time of Disposition: 09:02
[2023-10-09] MEDS: methylPREDNISolone SOD SUCCI 125 MG/2 ML VIAL IM ONE (09:20)
[2023-10-09 09:40] VITALS: BP 110/85; PULSE 95; RESP 18; TEMP 98.9
== END 2023-10-09 09:23 | disposition home or self-care (01) ==
LOC: EC 08:08
DX: R21 Rash and other nonspecific skin eruption (principal); Z91.041 Radiographic dye allergy status
CPT/HCPCS: 99282; 96372; J2919